=== PATIENT | male | born 1930 | race Caucasian/White ===

== ENCOUNTER 2018-01-07 16:39 | Inpatient (IN) | payer MEDICARE ==
[2018-01-07 17:27] LABS: ABNORMAL IP MESSAGE 1; HEMATOCRIT 37.5 % (42.0-52.0); HEMOGLOBIN 11.5 g/dl (14.0-18.0); MEAN CORPUSCULAR HEMOGLOBIN 26.7 pg (29.0-33.0); MEAN CORPUSCULAR HGB CONC 30.7 g/dl (32.0-37.0); MEAN CORPUSCULAR VOLUME 87.2 fl (82.0-101.0); MEAN PLATELET VOLUME 12.9 fl (7.4-10.4); PLATELET COUNT 234 10^3/UL (140-415); POSITIVE DIFF @See below; RED CELL DISTRIBUTION WIDTH 16.6 % (11.5-14.5)
[2018-01-07 17:27] LABS: WHITE BLOOD COUNT 23.5 10^3/ul (4.8-10.8)
[2018-01-07 17:35] LABS: ADD MAN DIFF? YES
[2018-01-07 17:49] LABS: ALANINE AMINOTRANSFERASE 30 IU/L (13-69); ALBUMIN 3.3 g/dl (3.3-4.9); ALBUMIN/GLOBULIN RATIO 0.67; ALKALINE PHOSPHATASE 430 IU/L (42-121); ANION GAP 14 (5-13); ASPARTATE AMINO TRANSFERASE 61 IU/L (15-46); BILIRUBIN,INDIRECT 0.2 mg/dl (0-1.1); BILIRUBIN,TOTAL 0.2 mg/dl (0.2-1.3); CALCIUM 9.7 mg/dl (8.4-10.2); CARBON DIOXIDE 27 mmol/L (21-31); CHLORIDE 120 mmol/L (97-110); GLUCOSE 110 mg/dl (70-220); LIPASE 34 U/L (23-300); POTASSIUM 4.7 mmol/L (3.5-5.1); TOTAL PROTEIN 8.2 g/dl (6.1-8.1)
[2018-01-07 17:56] LABS: SODIUM 161 mmol/L (135-144)
[2018-01-07 17:58] LABS: BLOOD UREA NITROGEN 132 mg/dl (7-20)
[2018-01-07 18:01] LABS: ADD UMIC YES; UR ASCORBIC ACID 40 mg/dL (NEGATIVE); UR BACTERIA FEW /HPF (NONE SEEN); UR BILIRUBIN (Dip) NEGATIVE (NEGATIVE); UR BLOOD (Dip) 2+ mg/dL (NEGATIVE); UR CLARITY TURBID (CLEAR); UR COLOR YELLOW (YELLOW); UR GLUCOSE (Dip) NEGATIVE (NEGATIVE); UR KETONES (Dip) NEGATIVE (NEGATIVE); UR LEUKOCYTE ESTERASE (Dip) 3+ Leu/ul (NEGATIVE); UR NITRITE (Dip) NEGATIVE (NEGATIVE); UR NONSQUAMOUS EPITHELIAL CELL 1 /HPF (NONE SEEN); UR RBC 86 /HPF (0-5); UR SPECIFIC GRAVITY (Dip) 1.017 (1.003-1.030); UR TOTAL PROTEIN (Dip) 2+ mg/dl (NEGATIVE); UR UROBILINOGEN (Dip) NEGATIVE (NEGATIVE); UR WBC > 182 /HPF (0-5)
[2018-01-07] MEDS: SOD CHLORIDE 0.9% 1,000 ML IV (18:08)
[2018-01-07] MEDS: PIPER-TAZO 3.375 GM IV (PMX) 100 ML IVPB (18:08)
[2018-01-07] MEDS: ERTAPENEM SODIUM 1 GM in SOD CHLORIDE 0.9% 100 ML IVPB (18:42)
[2018-01-07 18:47] LABS: BAND NEUTROPHILS #M 0.4 10^3/ul (0.0-0.6); BAND NEUTROPHILS % (M) 2 % (0-4); BURR CELLS 1+ (0-0); EOSINOPHILS % (M) 1 % (0-7); LYMPHOCYTES #M 1.6 10^3/ul (0.8-2.9); LYMPHOCYTES % (M) 7 % (15-51); MONOCYTE #M 1.1 10^3/ul (0.3-0.9); MONOCYTES % (M) 5 % (0-11); MYELOCYTES #M 0.7 10^3/ul (0.0-0.0); MYELOCYTES % (M) 3 % (0-0); PLATELET ESTIMATE NORMAL; POIKILOCYTOSIS 3+ (0-0); SEG NEUT #M 19.4 10^3/ul (1.6-7.5); SEGMENTED NEUTROPHILS (M) % 82 % (39-77); SMUDGE%M 11 % (0-0); TEAR DROP CELLS 1+ (0-0)
[2018-01-07] MEDS ORDERED: ONDANSETRON 4 MG TAB PO (23:00)
[2018-01-07] MEDS ORDERED: ACETAMINOPHEN 650MG/20.3ML CUP PO (23:00)
[2018-01-07] MEDS: BISACODYL 10 MG SUPP PR (23:00)
[2018-01-07] MEDS ORDERED: MEROPENEM 1 GM/50ML(PMX) 50 ML IVPB (23:00)
[2018-01-08] MEDS: DEXTROSE 5% 1,000 ML IV ×2 (00:50→08:41)
[2018-01-08 06:18] LABS: ABNORMAL IP MESSAGE 1; HEMATOCRIT 31.7 % (42.0-52.0); HEMOGLOBIN 9.6 g/dl (14.0-18.0); MEAN CORPUSCULAR HGB CONC 30.3 g/dl (32.0-37.0); MEAN PLATELET VOLUME 13.5 fl (7.4-10.4); PLATELET COUNT 131 10^3/UL (140-415); POSITIVE DIFF @See below; RED BLOOD COUNT 3.56 10^6/ul (4.70-6.10); RED CELL DISTRIBUTION WIDTH 17.1 % (11.5-14.5)
[2018-01-08 06:18] LABS: WHITE BLOOD COUNT 14.7 10^3/ul (4.8-10.8)
[2018-01-08 06:25] LABS: ADD MAN DIFF? YES
[2018-01-08 06:51] LABS: ANION GAP 10 (5-13); BLOOD UREA NITROGEN 98 mg/dl (7-20); CALCIUM 8.9 mg/dl (8.4-10.2); CARBON DIOXIDE 28 mmol/L (21-31); CHLORIDE 125 mmol/L (97-110); CREATININE 2.77 mg/dl (0.61-1.24); GLUCOSE 130 mg/dl (70-220); POTASSIUM 3.8 mmol/L (3.5-5.1)
[2018-01-08 06:59] LABS: SODIUM 163 mmol/L (135-144)
[2018-01-08 08:33] LABS: BAND NEUTROPHILS #M 0.2 10^3/ul (0.0-0.6); BAND NEUTROPHILS % (M) 2 % (0-4); BASOPHIL #M 0.1 10^3/ul (0.0-0.0); BASOPHILS % (M) 1 % (0-2); EOSINOPHILS % (M) 5 % (0-7); GIANT THROMBO% (M) 3 % (0-0); LYMPHOCYTES #M 1.9 10^3/ul (0.8-2.9); LYMPHOCYTES % (M) 13 % (15-51); METAMYELOCYTES #M 0.1 10^3/ul (0.0-0.0); METAMYELOCYTES %M 1 % (0-0); MICROCYTOSIS 1+ (0-0); MONOCYTE #M 0.8 10^3/ul (0.3-0.9); MONOCYTES % (M) 6 % (0-11); MYELOCYTES #M 0.2 10^3/ul (0.0-0.0); MYELOCYTES % (M) 2 % (0-0); PLATELET ESTIMATE DECREASED; POLYCHROMASIA 1+ (0-0); REACTIVE LYMPHOCYTES #M 0.1 10^3/ul (0.0-0.0); REACTIVE LYMPHOCYTES% (M) 1 % (0-0); SEG NEUT #M 10.2 10^3/ul (1.6-7.5); SEGMENTED NEUTROPHILS (M) % 69 % (39-77); SMUDGE%M 19 % (0-0)
[2018-01-08] MEDS: ASCORBIC ACID 500 MG TAB PO (08:37)
[2018-01-08] MEDS: FAMOTIDINE 20 MG TAB PO (08:38)
[2018-01-08] MEDS: DOCUSATE SODIUM 100 MG CAP PO ×2 (08:38→21:11)
[2018-01-08] MEDS: MULTIVITAMINS/MINERALS TAB PO (08:38)
[2018-01-08] MEDS: LACTOBACILLUS RHAMNOSUS CAP PO ×2 (08:38→21:10)
[2018-01-08] MEDS: ERTAPENEM SODIUM 0.5 GM in SOD CHLORIDE 0.9% 100 ML IVPB (08:40)
[2018-01-08] MEDS: ENOXAPARIN 30 MG/0.3 ML SYG SC (08:42)
[2018-01-08] MEDS ORDERED: ERTAPENEM SODIUM 1 GM VIAL IVPB (09:00)
[2018-01-08] MEDS ORDERED: NON-FORMULARY/PATIENT OWN MED (Protein Supplement (Promod) 30 ML) PO (09:00)
[2018-01-08] MEDS: D5W + KCL 20 MEQ 1,000 ML IV ×2 (12:43→21:12)
[2018-01-08 18:06] LABS: SODIUM,URINE RANDOM < 13 mmol/L (30-90)
[2018-01-08 18:08] LABS: CREATININE,URINE RANDOM 72.12 mg/dl (20-370); PROTEIN/CREAT RATIO 0.73 RATIO
[2018-01-08] MEDS: TAMSULOSIN (SR) 0.4 MG CAP PO (21:11)
[2018-01-09] MEDS: BISACODYL 10 MG SUPP PR ×2 (00:15→20:16)
[2018-01-09 05:49] LABS: ABNORMAL IP MESSAGE 1; HEMATOCRIT 30.1 % (42.0-52.0); HEMOGLOBIN 9.1 g/dl (14.0-18.0); MEAN CORPUSCULAR HEMOGLOBIN 27.2 pg (29.0-33.0); MEAN CORPUSCULAR HGB CONC 30.2 g/dl (32.0-37.0); MEAN CORPUSCULAR VOLUME 90.1 fl (82.0-101.0); MEAN PLATELET VOLUME 12.5 fl (7.4-10.4); PLATELET COUNT 183 10^3/UL (140-415); POSITIVE DIFF @See below; RED BLOOD COUNT 3.34 10^6/ul (4.70-6.10); RED CELL DISTRIBUTION WIDTH 16.4 % (11.5-14.5)
[2018-01-09 05:49] LABS: WHITE BLOOD COUNT 12.6 10^3/ul (4.8-10.8)
[2018-01-09 05:56] LABS: ADD MAN DIFF? YES
[2018-01-09 06:07] LABS: CREATINE KINASE 63 IU/L (23-200)
[2018-01-09 06:08] LABS: BLOOD UREA NITROGEN 56 mg/dl (7-20); CALCIUM 8.4 mg/dl (8.4-10.2); CARBON DIOXIDE 27 mmol/L (21-31); CREATININE 1.29 mg/dl (0.61-1.24); GLUCOSE 115 mg/dl (70-220); POTASSIUM 3.8 mmol/L (3.5-5.1); SODIUM 156 mmol/L (135-144)
[2018-01-09 06:26] LABS: ANION GAP 5 (5-13); CHLORIDE 124 mmol/L (97-110)
[2018-01-09 07:25] LABS: ANISOCYTOSIS 1+ (0-0); BAND NEUTROPHILS #M 0.1 10^3/ul (0.0-0.6); BAND NEUTROPHILS % (M) 1 % (0-4); BASOPHIL #M 0.1 10^3/ul (0.0-0.0); BASOPHILS % (M) 1 % (0-2); BURR CELLS 1+ (0-0); EOSINOPHILS % (M) 3 % (0-7); LYMPHOCYTES #M 2.3 10^3/ul (0.8-2.9); LYMPHOCYTES % (M) 19 % (15-51); MONOCYTE #M 0.6 10^3/ul (0.3-0.9); MONOCYTES % (M) 5 % (0-11); PLATELET ESTIMATE NORMAL; POIKILOCYTOSIS 1+ (0-0); POLYCHROMASIA 2+ (0-0); REACTIVE LYMPHOCYTES #M 0.1 10^3/ul (0.0-0.0); REACTIVE LYMPHOCYTES% (M) 1 % (0-0); SEG NEUT #M 8.8 10^3/ul (1.6-7.5); SEGMENTED NEUTROPHILS (M) % 70 % (39-77); SMUDGE%M 19 % (0-0)
[2018-01-09] MEDS: MULTIVITAMINS/MINERALS TAB PO (08:13)
[2018-01-09] MEDS: COLLAGENASE 5 GM (UD JAR) TOP (08:13)
[2018-01-09] MEDS: FAMOTIDINE 20 MG TAB PO (08:13)
[2018-01-09] MEDS: LACTOBACILLUS RHAMNOSUS CAP PO ×2 (08:13→20:15)
[2018-01-09] MEDS: DOCUSATE SODIUM 100 MG CAP PO ×2 (08:13→20:16)
[2018-01-09] MEDS: ASCORBIC ACID 500 MG TAB PO (08:13)
[2018-01-09] MEDS: D5W + KCL 20 MEQ 1,000 ML IV ×3 (08:14→23:01)
[2018-01-09] MEDS: BALSAM PERU/CASTOR OIL 60 GM TUBE TOP (08:14)
[2018-01-09] MEDS: ENOXAPARIN 30 MG/0.3 ML SYG SC (08:17)
[2018-01-09] MEDS: ERTAPENEM SODIUM 0.5 GM in SOD CHLORIDE 0.9% 100 ML IVPB (11:05)
[2018-01-09] MEDS: TAMSULOSIN (SR) 0.4 MG CAP PO (20:15)
[2018-01-10 05:25] LABS: ADD MAN DIFF? NO
[2018-01-10 05:31] LABS: WHITE BLOOD COUNT 15.8 10^3/ul (4.8-10.8)
[2018-01-10 05:31] LABS: BASOPHILS % 0.2 % (0.0-2.0); EOSINOPHILS # 0.6 10^3/ul (0.0-0.5); EOSINOPHILS % 3.7 % (0.0-7.0); HEMATOCRIT 29.1 % (42.0-52.0); HEMOGLOBIN 8.7 g/dl (14.0-18.0); LYMPHOCYTES # 2.7 10^3/ul (0.8-2.9); LYMPHOCYTES % 17.1 % (15.0-51.0); MEAN CORPUSCULAR HEMOGLOBIN 27.2 pg (29.0-33.0); MEAN CORPUSCULAR HGB CONC 29.9 g/dl (32.0-37.0); MEAN CORPUSCULAR VOLUME 90.9 fl (82.0-101.0); MEAN PLATELET VOLUME 12.4 fl (7.4-10.4); MONOCYTE # 0.7 10^3/ul (0.3-0.9); MONOCYTES % 4.5 % (0.0-11.0); NEUTROPHIL # 11.2 10^3/ul (1.6-7.5); NEUTROPHILS % 71.1 % (39.0-77.0); PLATELET COUNT 183 10^3/UL (140-415); RED CELL DISTRIBUTION WIDTH 16.4 % (11.5-14.5)
[2018-01-10 06:06] LABS: C-REACTIVE PROTEIN 3.7 mg/dl (0.0-0.9)
[2018-01-10 06:13] LABS: ANION GAP 9 (5-13); BLOOD UREA NITROGEN 37 mg/dl (7-20); CALCIUM 8.3 mg/dl (8.4-10.2); CARBON DIOXIDE 28 mmol/L (21-31); CHLORIDE 122 mmol/L (97-110); CREATININE 1.01 mg/dl (0.61-1.24); GLUCOSE 102 mg/dl (70-220); POTASSIUM 4.3 mmol/L (3.5-5.1); SODIUM 159 mmol/L (135-144)
[2018-01-10 06:55] LABS: PROSTATE SPECIFIC ANTIGEN 15.4 ng/ml (0.0-4.0)
[2018-01-10 08:46] LABS: ERYTHROCYTE SEDIMENTATION RATE 73 mm/Hr (0-20)
[2018-01-10] MEDS: ERTAPENEM SODIUM 0.5 GM in SOD CHLORIDE 0.9% 100 ML IVPB (09:55)
[2018-01-10] MEDS: LACTOBACILLUS RHAMNOSUS CAP PO ×2 (09:55→20:55)
[2018-01-10] MEDS: MULTIVITAMINS/MINERALS TAB PO (09:55)
[2018-01-10] MEDS: ASCORBIC ACID 500 MG TAB PO (09:55)
[2018-01-10] MEDS: DOCUSATE SODIUM 100 MG CAP PO ×2 (09:55→20:55)
[2018-01-10] MEDS: COLLAGENASE 5 GM (UD JAR) TOP (09:57)
[2018-01-10] MEDS: FAMOTIDINE 20 MG TAB PO (09:57)
[2018-01-10] MEDS: ENOXAPARIN 30 MG/0.3 ML SYG SC (09:57)
[2018-01-10] MEDS: BALSAM PERU/CASTOR OIL 60 GM TUBE TOP (09:58)
[2018-01-10] MEDS: D5W + KCL 20 MEQ 1,000 ML IV (19:23)
[2018-01-10] MEDS: TAMSULOSIN (SR) 0.4 MG CAP PO (20:55)
[2018-01-10] MEDS: BISACODYL 10 MG SUPP PR (23:03)
[2018-01-11 06:17] LABS: ADD MAN DIFF? NO
[2018-01-11 06:31] LABS: BASOPHILS % 0.2 % (0.0-2.0); EOSINOPHILS # 0.4 10^3/ul (0.0-0.5); EOSINOPHILS % 2.9 % (0.0-7.0); HEMATOCRIT 29.3 % (42.0-52.0); HEMOGLOBIN 8.7 g/dl (14.0-18.0); LYMPHOCYTES # 2.3 10^3/ul (0.8-2.9); LYMPHOCYTES % 15.2 % (15.0-51.0); MEAN CORPUSCULAR HEMOGLOBIN 27.3 pg (29.0-33.0); MEAN CORPUSCULAR HGB CONC 29.7 g/dl (32.0-37.0); MEAN CORPUSCULAR VOLUME 91.8 fl (82.0-101.0); MEAN PLATELET VOLUME 12.4 fl (7.4-10.4); MONOCYTE # 0.6 10^3/ul (0.3-0.9); MONOCYTES % 4.2 % (0.0-11.0); NEUTROPHIL # 11.1 10^3/ul (1.6-7.5); NEUTROPHILS % 73.8 % (39.0-77.0); PLATELET COUNT 136 10^3/UL (140-415); RED BLOOD COUNT 3.19 10^6/ul (4.70-6.10); RED CELL DISTRIBUTION WIDTH 15.9 % (11.5-14.5)
[2018-01-11 07:09] LABS: ANION GAP 3 (5-13); BLOOD UREA NITROGEN 30 mg/dl (7-20); CALCIUM 8.6 mg/dl (8.4-10.2); CARBON DIOXIDE 30 mmol/L (21-31); CHLORIDE 116 mmol/L (97-110); CREATININE 1.08 mg/dl (0.61-1.24); GLUCOSE 102 mg/dl (70-220); SODIUM 149 mmol/L (135-144)
[2018-01-11] MEDS: DOCUSATE SODIUM 100 MG CAP PO ×2 (08:30→20:05)
[2018-01-11] MEDS: MULTIVITAMINS/MINERALS TAB PO (08:30)
[2018-01-11] MEDS: FAMOTIDINE 20 MG TAB PO (08:30)
[2018-01-11] MEDS: D5W + KCL 20 MEQ 1,000 ML IV ×2 (08:30→18:47)
[2018-01-11] MEDS: ASCORBIC ACID 500 MG TAB PO (08:30)
[2018-01-11] MEDS: LACTOBACILLUS RHAMNOSUS CAP PO ×2 (08:30→20:05)
[2018-01-11] MEDS: ENOXAPARIN 30 MG/0.3 ML SYG SC (08:34)
[2018-01-11] MEDS: COLLAGENASE 5 GM (UD JAR) TOP (08:37)
[2018-01-11] MEDS: BALSAM PERU/CASTOR OIL 60 GM TUBE TOP (08:38)
[2018-01-11] MEDS: ERTAPENEM SODIUM 0.5 GM in SOD CHLORIDE 0.9% 100 ML IVPB (08:40)
[2018-01-11] MEDS: BISACODYL 10 MG SUPP PR (20:05)
[2018-01-11] MEDS: TAMSULOSIN (SR) 0.4 MG CAP PO (20:05)
[2018-01-12 02:20] LABS: ADD UMIC YES; UR ASCORBIC ACID 20 mg/dL (NEGATIVE); UR BACTERIA FEW /HPF (NONE SEEN); UR BILIRUBIN (Dip) NEGATIVE (NEGATIVE); UR BLOOD (Dip) NEGATIVE (NEGATIVE); UR BUDDING YEAST FEW /HPF (NONE SEEN); UR CLARITY SLIGHTLY CLOUDY (CLEAR); UR COLOR YELLOW (YELLOW); UR GLUCOSE (Dip) NEGATIVE (NEGATIVE); UR KETONES (Dip) NEGATIVE (NEGATIVE); UR LEUKOCYTE ESTERASE (Dip) 2+ Leu/ul (NEGATIVE); UR MUCUS FEW /HPF (NONE SEEN); UR NITRITE (Dip) NEGATIVE (NEGATIVE); UR RBC 4 /HPF (0-5); UR SPECIFIC GRAVITY (Dip) 1.009 (1.003-1.030); UR TOTAL PROTEIN (Dip) NEGATIVE (NEGATIVE); UR UROBILINOGEN (Dip) NEGATIVE (NEGATIVE); UR WBC 9 /HPF (0-5)
[2018-01-12 06:02] LABS: ADD MAN DIFF? NO
[2018-01-12 06:10] LABS: WHITE BLOOD COUNT 17.8 10^3/ul (4.8-10.8)
[2018-01-12 06:10] LABS: BASOPHIL # 0.1 10^3/ul (0.0-0.1); BASOPHILS % 0.3 % (0.0-2.0); EOSINOPHILS # 0.4 10^3/ul (0.0-0.5); EOSINOPHILS % 2.3 % (0.0-7.0); HEMATOCRIT 28.4 % (42.0-52.0); HEMOGLOBIN 8.7 g/dl (14.0-18.0); LYMPHOCYTES # 2.7 10^3/ul (0.8-2.9); MEAN CORPUSCULAR HEMOGLOBIN 27.2 pg (29.0-33.0); MEAN CORPUSCULAR HGB CONC 30.6 g/dl (32.0-37.0); MEAN CORPUSCULAR VOLUME 88.8 fl (82.0-101.0); MEAN PLATELET VOLUME 12.5 fl (7.4-10.4); MONOCYTE # 0.7 10^3/ul (0.3-0.9); MONOCYTES % 3.9 % (0.0-11.0); NEUTROPHIL # 13.4 10^3/ul (1.6-7.5); NEUTROPHILS % 75.2 % (39.0-77.0); PLATELET COUNT 205 10^3/UL (140-415); RED CELL DISTRIBUTION WIDTH 15.2 % (11.5-14.5)
[2018-01-12] MEDS: D5W + KCL 20 MEQ 1,000 ML IV (06:31)
[2018-01-12 06:59] LABS: ANION GAP 6 (5-13); BLOOD UREA NITROGEN 19 mg/dl (7-20); CALCIUM 8.4 mg/dl (8.4-10.2); CARBON DIOXIDE 27 mmol/L (21-31); CHLORIDE 112 mmol/L (97-110); CREATININE 0.88 mg/dl (0.61-1.24); GLUCOSE 94 mg/dl (70-220); POTASSIUM 4.4 mmol/L (3.5-5.1); SODIUM 145 mmol/L (135-144)
[2018-01-12] MEDS: MULTIVITAMINS/MINERALS TAB PO (08:44)
[2018-01-12] MEDS: LACTOBACILLUS RHAMNOSUS CAP PO ×2 (08:44→20:07)
[2018-01-12] MEDS: FAMOTIDINE 20 MG TAB PO (08:44)
[2018-01-12] MEDS: ASCORBIC ACID 500 MG TAB PO (08:44)
[2018-01-12] MEDS: DOCUSATE SODIUM 100 MG CAP PO ×2 (08:44→20:07)
[2018-01-12] MEDS: COLLAGENASE 5 GM (UD JAR) TOP (08:46)
[2018-01-12] MEDS: ENOXAPARIN 30 MG/0.3 ML SYG SC (08:46)
[2018-01-12] MEDS: ERTAPENEM SODIUM 0.5 GM in SOD CHLORIDE 0.9% 100 ML IVPB (08:46)
[2018-01-12] MEDS: BALSAM PERU/CASTOR OIL 60 GM TUBE TOP (08:46)
[2018-01-12] MEDS: BISACODYL 10 MG SUPP PR (20:08)
[2018-01-12] MEDS: TAMSULOSIN (SR) 0.4 MG CAP PO (20:08)
[2018-01-13] MEDS: D5W + KCL 20 MEQ 1,000 ML IV ×2 (03:32→23:02)
[2018-01-13 05:59] LABS: WHITE BLOOD COUNT 16.2 10^3/ul (4.8-10.8)
[2018-01-13 05:59] LABS: HEMATOCRIT 30.6 % (42.0-52.0); HEMOGLOBIN 9.4 g/dl (14.0-18.0); MEAN CORPUSCULAR HEMOGLOBIN 27.5 pg (29.0-33.0); MEAN CORPUSCULAR HGB CONC 30.7 g/dl (32.0-37.0); MEAN CORPUSCULAR VOLUME 89.5 fl (82.0-101.0); MEAN PLATELET VOLUME 13.1 fl (7.4-10.4); POSITIVE DIFF @See below; RED BLOOD COUNT 3.42 10^6/ul (4.70-6.10); RED CELL DISTRIBUTION WIDTH 15.1 % (11.5-14.5)
[2018-01-13 06:08] LABS: ANION GAP 9 (5-13); BLOOD UREA NITROGEN 17 mg/dl (7-20); CALCIUM 8.5 mg/dl (8.4-10.2); CARBON DIOXIDE 26 mmol/L (21-31); CHLORIDE 109 mmol/L (97-110); CREATININE 0.81 mg/dl (0.61-1.24); GLUCOSE 101 mg/dl (70-220); POTASSIUM 4.3 mmol/L (3.5-5.1); SODIUM 144 mmol/L (135-144)
[2018-01-13 06:19] LABS: ADD MAN DIFF? YES; PLATELET COUNT 111 10^3/UL (140-415)
[2018-01-13 07:30] LABS: ANISOCYTOSIS 1+ (0-0); EOSINOPHILS % (M) 1 % (0-7); GIANT THROMBO% (M) 1 % (0-0); LYMPHOCYTES #M 2.2 10^3/ul (0.8-2.9); LYMPHOCYTES % (M) 14 % (15-51); MICROCYTOSIS 1+ (0-0); MONOCYTE #M 0.4 10^3/ul (0.3-0.9); MONOCYTES % (M) 3 % (0-11); MYELOCYTES #M 0.1 10^3/ul (0.0-0.0); MYELOCYTES % (M) 1 % (0-0); PLATELET ESTIMATE DECREASED; PLATELET MORPHOLOGY COMMENT @See below; REACTIVE LYMPHOCYTES #M 0.3 10^3/ul (0.0-0.0); REACTIVE LYMPHOCYTES% (M) 2 % (0-0); SEGMENTED NEUTROPHILS (M) % 79 % (39-77); SMUDGE%M 13 % (0-0)
[2018-01-13] MEDS: COLLAGENASE 5 GM (UD JAR) TOP (08:54)
[2018-01-13] MEDS: FAMOTIDINE 20 MG TAB PO (08:54)
[2018-01-13] MEDS: LACTOBACILLUS RHAMNOSUS CAP PO ×2 (08:54→20:49)
[2018-01-13] MEDS: MULTIVITAMINS/MINERALS TAB PO (08:54)
[2018-01-13] MEDS: DOCUSATE SODIUM 100 MG CAP PO ×2 (08:54→20:49)
[2018-01-13] MEDS: ASCORBIC ACID 500 MG TAB PO (08:54)
[2018-01-13] MEDS: BALSAM PERU/CASTOR OIL 60 GM TUBE TOP (08:55)
[2018-01-13] MEDS: ENOXAPARIN 30 MG/0.3 ML SYG SC (09:05)
[2018-01-13] MEDS: ERTAPENEM SODIUM 0.5 GM in SOD CHLORIDE 0.9% 100 ML IVPB (09:06)
[2018-01-13] MEDS: FLUCONAZOLE 100 MG/50 ML (PMX) 50 ML IVPB (16:44)
[2018-01-13] MEDS: TAMSULOSIN (SR) 0.4 MG CAP PO (20:49)
[2018-01-13] MEDS: BISACODYL 10 MG SUPP PR (23:00)
[2018-01-14 05:15] LABS: ADD MAN DIFF? NO
[2018-01-14 05:16] LABS: WHITE BLOOD COUNT 12.3 10^3/ul (4.8-10.8)
[2018-01-14 05:16] LABS: BASOPHIL # 0.1 10^3/ul (0.0-0.1); BASOPHILS % 0.5 % (0.0-2.0); EOSINOPHILS # 0.4 10^3/ul (0.0-0.5); EOSINOPHILS % 3.4 % (0.0-7.0); HEMATOCRIT 27.6 % (42.0-52.0); HEMOGLOBIN 8.6 g/dl (14.0-18.0); LYMPHOCYTES # 2.3 10^3/ul (0.8-2.9); LYMPHOCYTES % 18.3 % (15.0-51.0); MEAN CORPUSCULAR HEMOGLOBIN 27.2 pg (29.0-33.0); MEAN CORPUSCULAR HGB CONC 31.2 g/dl (32.0-37.0); MEAN CORPUSCULAR VOLUME 87.3 fl (82.0-101.0); MEAN PLATELET VOLUME 12.4 fl (7.4-10.4); MONOCYTE # 0.6 10^3/ul (0.3-0.9); MONOCYTES % 5.2 % (0.0-11.0); NEUTROPHIL # 8.6 10^3/ul (1.6-7.5); NEUTROPHILS % 70.2 % (39.0-77.0); PLATELET COUNT 259 10^3/UL (140-415); RED BLOOD COUNT 3.16 10^6/ul (4.70-6.10); RED CELL DISTRIBUTION WIDTH 15.2 % (11.5-14.5)
[2018-01-14 05:43] LABS: ANION GAP 6 (5-13); BLOOD UREA NITROGEN 15 mg/dl (7-20); CALCIUM 8.5 mg/dl (8.4-10.2); CARBON DIOXIDE 28 mmol/L (21-31); CHLORIDE 108 mmol/L (97-110); CREATININE 0.78 mg/dl (0.61-1.24); GLUCOSE 96 mg/dl (70-220); POTASSIUM 4.6 mmol/L (3.5-5.1); SODIUM 142 mmol/L (135-144)
[2018-01-14] MEDS: LACTOBACILLUS RHAMNOSUS CAP PO ×2 (08:45→20:25)
[2018-01-14] MEDS: ASCORBIC ACID 500 MG TAB PO (08:45)
[2018-01-14] MEDS: MULTIVITAMINS/MINERALS TAB PO (08:45)
[2018-01-14] MEDS: FAMOTIDINE 20 MG TAB PO (08:45)
[2018-01-14] MEDS: ERTAPENEM SODIUM 0.5 GM in SOD CHLORIDE 0.9% 100 ML IVPB (08:45)
[2018-01-14] MEDS: DOCUSATE SODIUM 100 MG CAP PO ×2 (08:45→20:25)
[2018-01-14] MEDS: COLLAGENASE 5 GM (UD JAR) TOP (09:04)
[2018-01-14] MEDS: ENOXAPARIN 30 MG/0.3 ML SYG SC (09:04)
[2018-01-14] MEDS: BALSAM PERU/CASTOR OIL 60 GM TUBE TOP (09:04)
[2018-01-14] MEDS: FLUCONAZOLE 100 MG/50 ML (PMX) 50 ML IVPB (17:07)
[2018-01-14] MEDS: TAMSULOSIN (SR) 0.4 MG CAP PO (20:25)
[2018-01-14] MEDS: D5W + KCL 20 MEQ 1,000 ML IV (20:25)
[2018-01-14] MEDS: BISACODYL 10 MG SUPP PR (23:00)
[2018-01-15] MEDS: ERTAPENEM SODIUM 0.5 GM in SOD CHLORIDE 0.9% 100 ML IVPB (08:58)
[2018-01-15] MEDS: COLLAGENASE 5 GM (UD JAR) TOP (08:58)
[2018-01-15] MEDS: LACTOBACILLUS RHAMNOSUS CAP PO ×2 (08:59→20:10)
[2018-01-15] MEDS: FAMOTIDINE 20 MG TAB PO (08:59)
[2018-01-15] MEDS: ASCORBIC ACID 500 MG TAB PO (08:59)
[2018-01-15] MEDS: MULTIVITAMINS/MINERALS TAB PO (08:59)
[2018-01-15] MEDS: DOCUSATE SODIUM 100 MG CAP PO ×2 (08:59→20:10)
[2018-01-15] MEDS: BALSAM PERU/CASTOR OIL 60 GM TUBE TOP (09:00)
[2018-01-15] MEDS: ENOXAPARIN 30 MG/0.3 ML SYG SC (09:08)
[2018-01-15 10:07] LABS: ADD MAN DIFF? NO
[2018-01-15 10:13] LABS: WHITE BLOOD COUNT 10.3 10^3/ul (4.8-10.8)
[2018-01-15 10:13] LABS: BASOPHIL # 0.1 10^3/ul (0.0-0.1); BASOPHILS % 0.5 % (0.0-2.0); EOSINOPHILS # 0.3 10^3/ul (0.0-0.5); EOSINOPHILS % 2.7 % (0.0-7.0); HEMATOCRIT 28.6 % (42.0-52.0); HEMOGLOBIN 8.7 g/dl (14.0-18.0); LYMPHOCYTES # 1.9 10^3/ul (0.8-2.9); LYMPHOCYTES % 17.9 % (15.0-51.0); MEAN CORPUSCULAR HEMOGLOBIN 27.2 pg (29.0-33.0); MEAN CORPUSCULAR HGB CONC 30.4 g/dl (32.0-37.0); MEAN CORPUSCULAR VOLUME 89.4 fl (82.0-101.0); MEAN PLATELET VOLUME 12.5 fl (7.4-10.4); MONOCYTE # 0.7 10^3/ul (0.3-0.9); MONOCYTES % 7.2 % (0.0-11.0); NEUTROPHIL # 7.2 10^3/ul (1.6-7.5); NEUTROPHILS % 70.1 % (39.0-77.0); PLATELET COUNT 242 10^3/UL (140-415); RED CELL DISTRIBUTION WIDTH 15.5 % (11.5-14.5)
[2018-01-15 10:33] LABS: ANION GAP 8 (5-13); BLOOD UREA NITROGEN 15 mg/dl (7-20); CALCIUM 8.8 mg/dl (8.4-10.2); CARBON DIOXIDE 30 mmol/L (21-31); CHLORIDE 107 mmol/L (97-110); CREATININE 0.84 mg/dl (0.61-1.24); GLUCOSE 99 mg/dl (70-220); POTASSIUM 4.6 mmol/L (3.5-5.1); SODIUM 145 mmol/L (135-144)
[2018-01-15] MEDS: D5W + KCL 20 MEQ 1,000 ML IV (16:17)
[2018-01-15] MEDS: FLUCONAZOLE 100 MG/50 ML (PMX) 50 ML IVPB (17:49)
[2018-01-15] MEDS: TAMSULOSIN (SR) 0.4 MG CAP PO (20:10)
[2018-01-15] MEDS: BISACODYL 10 MG SUPP PR (23:00)
[2018-01-16 06:15] LABS: ADD MAN DIFF? NO
[2018-01-16 06:23] LABS: BASOPHIL # 0.1 10^3/ul (0.0-0.1); BASOPHILS % 0.6 % (0.0-2.0); EOSINOPHILS # 0.3 10^3/ul (0.0-0.5); EOSINOPHILS % 3.5 % (0.0-7.0); HEMATOCRIT 29.5 % (42.0-52.0); HEMOGLOBIN 9.1 g/dl (14.0-18.0); LYMPHOCYTES # 2.2 10^3/ul (0.8-2.9); LYMPHOCYTES % 23.5 % (15.0-51.0); MEAN CORPUSCULAR HEMOGLOBIN 27.6 pg (29.0-33.0); MEAN CORPUSCULAR HGB CONC 30.8 g/dl (32.0-37.0); MEAN CORPUSCULAR VOLUME 89.4 fl (82.0-101.0); MEAN PLATELET VOLUME 12.3 fl (7.4-10.4); MONOCYTE # 0.7 10^3/ul (0.3-0.9); MONOCYTES % 7.9 % (0.0-11.0); NEUTROPHIL # 5.9 10^3/ul (1.6-7.5); NEUTROPHILS % 63.4 % (39.0-77.0); PLATELET COUNT 253 10^3/UL (140-415); RED CELL DISTRIBUTION WIDTH 15.6 % (11.5-14.5)
[2018-01-16 06:23] LABS: WHITE BLOOD COUNT 9.4 10^3/ul (4.8-10.8)
[2018-01-16 07:06] LABS: ANION GAP 6 (5-13); BLOOD UREA NITROGEN 17 mg/dl (7-20); CALCIUM 8.7 mg/dl (8.4-10.2); CARBON DIOXIDE 27 mmol/L (21-31); CHLORIDE 105 mmol/L (97-110); CREATININE 0.67 mg/dl (0.61-1.24); GLUCOSE 92 mg/dl (70-220); POTASSIUM 4.4 mmol/L (3.5-5.1); SODIUM 138 mmol/L (135-144)
[2018-01-16] MEDS: FAMOTIDINE 20 MG TAB PO (09:26)
[2018-01-16] MEDS: MULTIVITAMINS/MINERALS TAB PO (09:26)
[2018-01-16] MEDS: LACTOBACILLUS RHAMNOSUS CAP PO ×2 (09:26→21:40)
[2018-01-16] MEDS: ASCORBIC ACID 500 MG TAB PO (09:27)
[2018-01-16] MEDS: DOCUSATE SODIUM 100 MG CAP PO ×2 (09:27→21:40)
[2018-01-16] MEDS: BALSAM PERU/CASTOR OIL 60 GM TUBE TOP (09:27)
[2018-01-16] MEDS: COLLAGENASE 5 GM (UD JAR) TOP (09:27)
[2018-01-16] MEDS: ENOXAPARIN 30 MG/0.3 ML SYG SC (09:31)
[2018-01-16] MEDS: D5W + KCL 20 MEQ 1,000 ML IV ×2 (11:32→14:45)
[2018-01-16] MEDS: FLUCONAZOLE 100 MG/50 ML (PMX) 50 ML IVPB (17:58)
[2018-01-16] MEDS: TAMSULOSIN (SR) 0.4 MG CAP PO (21:40)
[2018-01-16] MEDS: BISACODYL 10 MG SUPP PR (23:00)
[2018-01-17] MEDS: D5W + KCL 20 MEQ 1,000 ML IV ×2 (07:30→13:04)
[2018-01-17] MEDS: MULTIVITAMINS/MINERALS TAB PO (08:02)
[2018-01-17] MEDS: FAMOTIDINE 20 MG TAB PO (08:02)
[2018-01-17] MEDS: BALSAM PERU/CASTOR OIL 60 GM TUBE TOP (08:02)
[2018-01-17] MEDS: LACTOBACILLUS RHAMNOSUS CAP PO ×2 (08:02→22:13)
[2018-01-17] MEDS: COLLAGENASE 5 GM (UD JAR) TOP (08:02)
[2018-01-17] MEDS: DOCUSATE SODIUM 100 MG CAP PO ×2 (08:04→22:13)
[2018-01-17] MEDS: ASCORBIC ACID 500 MG TAB PO (08:04)
[2018-01-17] MEDS: ENOXAPARIN 30 MG/0.3 ML SYG SC (09:28)
[2018-01-17] MEDS: FLUCONAZOLE 100 MG/50 ML (PMX) 50 ML IVPB (17:25)
[2018-01-17] MEDS: TAMSULOSIN (SR) 0.4 MG CAP PO (22:13)
[2018-01-17] MEDS: BISACODYL 10 MG SUPP PR (22:16)
[2018-01-18] MEDS: D5W + KCL 20 MEQ 1,000 ML IV (05:15)
[2018-01-18 06:00] LABS: ADD MAN DIFF? NO
[2018-01-18 06:04] LABS: BASOPHIL # 0.1 10^3/ul (0.0-0.1); BASOPHILS % 0.8 % (0.0-2.0); EOSINOPHILS # 0.3 10^3/ul (0.0-0.5); EOSINOPHILS % 3.4 % (0.0-7.0); HEMATOCRIT 28.4 % (42.0-52.0); HEMOGLOBIN 8.9 g/dl (14.0-18.0); LYMPHOCYTES # 2.3 10^3/ul (0.8-2.9); LYMPHOCYTES % 25.7 % (15.0-51.0); MEAN CORPUSCULAR HEMOGLOBIN 27.6 pg (29.0-33.0); MEAN CORPUSCULAR HGB CONC 31.3 g/dl (32.0-37.0); MEAN CORPUSCULAR VOLUME 88.2 fl (82.0-101.0); MONOCYTE # 0.8 10^3/ul (0.3-0.9); MONOCYTES % 9.2 % (0.0-11.0); NEUTROPHIL # 5.5 10^3/ul (1.6-7.5); NEUTROPHILS % 60.2 % (39.0-77.0); PLATELET COUNT 329 10^3/UL (140-415); RED BLOOD COUNT 3.22 10^6/ul (4.70-6.10)
[2018-01-18 06:04] LABS: WHITE BLOOD COUNT 9.1 10^3/ul (4.8-10.8)
[2018-01-18 06:52] LABS: ANION GAP 8 (5-13); BLOOD UREA NITROGEN 19 mg/dl (7-20); CALCIUM 9.1 mg/dl (8.4-10.2); CARBON DIOXIDE 28 mmol/L (21-31); CHLORIDE 103 mmol/L (97-110); CREATININE 0.77 mg/dl (0.61-1.24); GLUCOSE 108 mg/dl (70-220); POTASSIUM 4.4 mmol/L (3.5-5.1); SODIUM 139 mmol/L (135-144)
[2018-01-18] MEDS: DOCUSATE SODIUM 100 MG CAP PO ×2 (07:56→21:02)
[2018-01-18] MEDS: FAMOTIDINE 20 MG TAB PO (07:56)
[2018-01-18] MEDS: LACTOBACILLUS RHAMNOSUS CAP PO ×2 (07:56→21:02)
[2018-01-18] MEDS: MULTIVITAMINS/MINERALS TAB PO (07:56)
[2018-01-18] MEDS: ASCORBIC ACID 500 MG TAB PO (07:56)
[2018-01-18] MEDS: BALSAM PERU/CASTOR OIL 60 GM TUBE TOP (07:56)
[2018-01-18] MEDS: COLLAGENASE 5 GM (UD JAR) TOP (07:57)
[2018-01-18] MEDS: ENOXAPARIN 30 MG/0.3 ML SYG SC (08:04)
[2018-01-18] MEDS: FLUCONAZOLE 100 MG/50 ML (PMX) 50 ML IVPB (16:32)
[2018-01-18] MEDS: TAMSULOSIN (SR) 0.4 MG CAP PO (21:02)
[2018-01-18] MEDS: BISACODYL 10 MG SUPP PR (23:04)
[2018-01-19] MEDS: D5W + KCL 20 MEQ 1,000 ML IV (00:59)
[2018-01-19 06:05] LABS: ANION GAP 5 (5-13); BLOOD UREA NITROGEN 12 mg/dl (7-20); CALCIUM 9.1 mg/dl (8.4-10.2); CARBON DIOXIDE 31 mmol/L (21-31); CHLORIDE 107 mmol/L (97-110); CREATININE 0.76 mg/dl (0.61-1.24); GLUCOSE 101 mg/dl (70-220); POTASSIUM 4.3 mmol/L (3.5-5.1); SODIUM 143 mmol/L (135-144)
[2018-01-19] MEDS: ENOXAPARIN 30 MG/0.3 ML SYG SC (07:49)
[2018-01-19] MEDS: DOCUSATE SODIUM 100 MG CAP PO ×2 (07:49→22:02)
[2018-01-19] MEDS: LACTOBACILLUS RHAMNOSUS CAP PO ×2 (08:44→22:02)
[2018-01-19] MEDS: FAMOTIDINE 20 MG TAB PO (08:44)
[2018-01-19] MEDS: MULTIVITAMINS/MINERALS TAB PO (08:44)
[2018-01-19] MEDS: ASCORBIC ACID 500 MG TAB PO (08:44)
[2018-01-19] MEDS: COLLAGENASE 5 GM (UD JAR) TOP (08:45)
[2018-01-19] MEDS: BALSAM PERU/CASTOR OIL 60 GM TUBE TOP (08:45)
[2018-01-19] MEDS: FLUCONAZOLE 100 MG/50 ML (PMX) 50 ML IVPB (16:25)
[2018-01-19] MEDS: TAMSULOSIN (SR) 0.4 MG CAP PO (22:02)
[2018-01-20] MEDS: BISACODYL 10 MG SUPP PR ×2 (00:08→22:00)
[2018-01-20 06:00] LABS: ADD MAN DIFF? NO
[2018-01-20 06:15] LABS: WHITE BLOOD COUNT 7.7 10^3/ul (4.8-10.8)
[2018-01-20 06:15] LABS: BASOPHIL # 0.1 10^3/ul (0.0-0.1); BASOPHILS % 0.8 % (0.0-2.0); EOSINOPHILS # 0.3 10^3/ul (0.0-0.5); LYMPHOCYTES % 26.2 % (15.0-51.0); MEAN CORPUSCULAR HEMOGLOBIN 27.8 pg (29.0-33.0); MEAN CORPUSCULAR VOLUME 89.5 fl (82.0-101.0); MONOCYTE # 0.6 10^3/ul (0.3-0.9); MONOCYTES % 7.9 % (0.0-11.0); NEUTROPHIL # 4.7 10^3/ul (1.6-7.5); NEUTROPHILS % 60.6 % (39.0-77.0); PLATELET COUNT 309 10^3/UL (140-415); RED BLOOD COUNT 3.24 10^6/ul (4.70-6.10); RED CELL DISTRIBUTION WIDTH 16.2 % (11.5-14.5)
[2018-01-20 06:32] LABS: ALANINE AMINOTRANSFERASE 40 IU/L (13-69); ALBUMIN/GLOBULIN RATIO 0.76; ALKALINE PHOSPHATASE 195 IU/L (42-121); ANION GAP 5 (5-13); ASPARTATE AMINO TRANSFERASE 35 IU/L (15-46); BILIRUBIN,INDIRECT 0.3 mg/dl (0-1.1); BILIRUBIN,TOTAL 0.3 mg/dl (0.2-1.3); BLOOD UREA NITROGEN 17 mg/dl (7-20); CALCIUM 8.9 mg/dl (8.4-10.2); CARBON DIOXIDE 32 mmol/L (21-31); CHLORIDE 104 mmol/L (97-110); CREATININE 0.81 mg/dl (0.61-1.24); GLUCOSE 86 mg/dl (70-220); POTASSIUM 4.7 mmol/L (3.5-5.1); SODIUM 141 mmol/L (135-144); TOTAL PROTEIN 6.9 g/dl (6.1-8.1)
[2018-01-20] MEDS: ASCORBIC ACID 500 MG TAB PO (08:33)
[2018-01-20] MEDS: LACTOBACILLUS RHAMNOSUS CAP PO ×2 (08:33→21:58)
[2018-01-20] MEDS: ENOXAPARIN 30 MG/0.3 ML SYG SC (08:33)
[2018-01-20] MEDS: DOCUSATE SODIUM 100 MG CAP PO ×2 (08:33→21:58)
[2018-01-20] MEDS: FAMOTIDINE 20 MG TAB PO (08:33)
[2018-01-20] MEDS: MULTIVITAMINS/MINERALS TAB PO (08:33)
[2018-01-20] MEDS: COLLAGENASE 5 GM (UD JAR) TOP (08:35)
[2018-01-20] MEDS: BALSAM PERU/CASTOR OIL 60 GM TUBE TOP (08:35)
[2018-01-20] MEDS: FLUCONAZOLE 100 MG TAB PO (17:13)
[2018-01-20] MEDS: TAMSULOSIN (SR) 0.4 MG CAP PO (21:59)
[2018-01-21] MEDS: ASCORBIC ACID 500 MG TAB PO (09:06)
[2018-01-21] MEDS: LACTOBACILLUS RHAMNOSUS CAP PO ×2 (09:06→20:13)
[2018-01-21] MEDS: DOCUSATE SODIUM 100 MG CAP PO ×2 (09:07→20:13)
[2018-01-21] MEDS: FLUCONAZOLE 100 MG TAB PO (09:07)
[2018-01-21] MEDS: MULTIVITAMINS/MINERALS TAB PO (09:07)
[2018-01-21] MEDS: FAMOTIDINE 20 MG TAB PO (09:07)
[2018-01-21] MEDS: BALSAM PERU/CASTOR OIL 60 GM TUBE TOP (09:08)
[2018-01-21] MEDS: COLLAGENASE 5 GM (UD JAR) TOP (09:08)
[2018-01-21] MEDS: ENOXAPARIN 30 MG/0.3 ML SYG SC (09:10)
[2018-01-21] MEDS: TAMSULOSIN (SR) 0.4 MG CAP PO (20:13)
[2018-01-21] MEDS: BISACODYL 10 MG SUPP PR (22:30)
[2018-01-22] MEDS: DOCUSATE SODIUM 100 MG CAP PO ×2 (08:56→22:00)
[2018-01-22] MEDS: FAMOTIDINE 20 MG TAB PO (08:56)
[2018-01-22] MEDS: LACTOBACILLUS RHAMNOSUS CAP PO ×2 (08:56→22:00)
[2018-01-22] MEDS: ASCORBIC ACID 500 MG TAB PO (08:56)
[2018-01-22] MEDS: MULTIVITAMINS/MINERALS TAB PO (08:57)
[2018-01-22] MEDS: ENOXAPARIN 30 MG/0.3 ML SYG SC (08:59)
[2018-01-22] MEDS: COLLAGENASE 5 GM (UD JAR) TOP (09:06)
[2018-01-22] MEDS: BALSAM PERU/CASTOR OIL 60 GM TUBE TOP (09:06)
[2018-01-22] MEDS: TAMSULOSIN (SR) 0.4 MG CAP PO (22:00)
[2018-01-22] MEDS: BISACODYL 10 MG SUPP PR (22:03)
[2018-01-23] MEDS: LACTOBACILLUS RHAMNOSUS CAP PO ×2 (08:54→19:56)
[2018-01-23] MEDS: ASCORBIC ACID 500 MG TAB PO (08:54)
[2018-01-23] MEDS: DOCUSATE SODIUM 100 MG CAP PO ×2 (08:54→19:56)
[2018-01-23] MEDS: FAMOTIDINE 20 MG TAB PO (08:54)
[2018-01-23] MEDS: COLLAGENASE 5 GM (UD JAR) TOP (08:54)
[2018-01-23] MEDS: MULTIVITAMINS/MINERALS TAB PO (08:54)
[2018-01-23] MEDS: ENOXAPARIN 30 MG/0.3 ML SYG SC (08:57)
[2018-01-23] MEDS: BALSAM PERU/CASTOR OIL 60 GM TUBE TOP (08:58)
[2018-01-23] MEDS: TAMSULOSIN (SR) 0.4 MG CAP PO (19:56)
== END 2018-01-23 21:28 | DRG 871 ==
LOC: 6WM 01-18 20:47 → 2NE 01-19 17:40 → E/R 16:39 → 6WM 19:05
DX: A41.9 Sepsis, unspecified organism (principal); L89.154 Pressure ulcer of sacral region, stage 4; R53.2 Functional quadriplegia; N17.0 Acute kidney failure with tubular necrosis; G92 Toxic encephalopathy; N39.0 Urinary tract infection, site not specified; E87.0 Hyperosmolality and hypernatremia; E46 Unspecified protein-calorie malnutrition; Z68.1 Body mass index [BMI] 19.9 or less, adult; E44.0 Moderate protein-calorie malnutrition; E86.0 Dehydration; F03.90 Unspecified dementia, unspecified severity, without behavioral disturbance, psychotic disturbance, mood disturbance, and anxiety; K21.9 Gastro-esophageal reflux disease without esophagitis; Z86.718 Personal history of other venous thrombosis and embolism; Z87.440 Personal history of urinary (tract) infections; I12.9 Hypertensive chronic kidney disease with stage 1 through stage 4 chronic kidney disease, or unspecified chronic kidney disease; N18.9 Chronic kidney disease, unspecified; N40.1 Benign prostatic hyperplasia with lower urinary tract symptoms; R33.8 Other retention of urine; N41.9 Inflammatory disease of prostate, unspecified
CPT/HCPCS: 76775; 80048; 80053; 81001; 81003; 82550; 82570; 83690; 84153; 84154; 84300; 84560; 85025; 85651; 86140; 87040; 87081; 87086; 89190; 96374; 96375; 99285-25

== ENCOUNTER 2018-02-13 17:51 | Inpatient (IN) | payer MEDICARE, MEDICAID ==
[2018-02-13 18:48] LABS: ABNORMAL IP MESSAGE 1; HEMATOCRIT 37.8 % (42.0-52.0); HEMOGLOBIN 11.9 g/dl (14.0-18.0); MEAN CORPUSCULAR HEMOGLOBIN 28.3 pg (29.0-33.0); MEAN CORPUSCULAR HGB CONC 31.5 g/dl (32.0-37.0); MEAN PLATELET VOLUME 12.3 fl (7.4-10.4); PLATELET COUNT 312 10^3/UL (140-415); POSITIVE DIFF @See below; RED CELL DISTRIBUTION WIDTH 17.5 % (11.5-14.5)
[2018-02-13] MEDS: ONDANSETRON 4 MG INJ IV (18:50)
[2018-02-13] MEDS: SOD CHLORIDE 0.9% 1,000 ML IV ×2 (18:50→20:04)
[2018-02-13] MEDS: PANTOPRAZOLE 40 MG INJ IV (18:51)
[2018-02-13 18:53] LABS: ADD MAN DIFF? YES
[2018-02-13 19:08] LABS: PARTIAL THROMBOPLASTIN TIME 30.5 Sec (23.0-35.0)
[2018-02-13 19:13] LABS: ANISOCYTOSIS 1+ (0-0); BAND NEUTROPHILS #M 7.7 10^3/ul (0.0-0.6); BAND NEUTROPHILS % (M) 25 % (0-4); EOSINOPHILS % (M) 1 % (0-7); GIANT THROMBO% (M) 2 % (0-0); LYMPHOCYTES #M 0.9 10^3/ul (0.8-2.9); LYMPHOCYTES % (M) 3 % (15-51); PLATELET ESTIMATE NORMAL; POIKILOCYTOSIS 1+ (0-0); POLYCHROMASIA 1+ (0-0); REACTIVE LYMPHOCYTES #M 0.3 10^3/ul (0.0-0.0); REACTIVE LYMPHOCYTES% (M) 1 % (0-0); SEG NEUT #M 24.1 10^3/ul (1.6-7.5); SEGMENTED NEUTROPHILS (M) % 70 % (39-77); SMUDGE%M 11 % (0-0)
[2018-02-13 19:15] LABS: INR 1.11; PROTIME 14.5 Sec (11.9-14.9); PT RATIO 1.1
[2018-02-13 19:20] LABS: TROPONIN-I 0.097 ng/ml (0.000-0.120)
[2018-02-13 19:24] LABS: ADD UMIC YES; UR ASCORBIC ACID NEGATIVE (NEGATIVE); UR BACTERIA MANY /HPF (NONE SEEN); UR BILIRUBIN (Dip) NEGATIVE (NEGATIVE); UR BLOOD (Dip) 2+ mg/dL (NEGATIVE); UR CLARITY CLOUDY (CLEAR); UR COLOR YELLOW (YELLOW); UR GLUCOSE (Dip) NEGATIVE (NEGATIVE); UR KETONES (Dip) NEGATIVE (NEGATIVE); UR LEUKOCYTE ESTERASE (Dip) 3+ Leu/ul (NEGATIVE); UR NITRITE (Dip) NEGATIVE (NEGATIVE); UR RBC 6 /HPF (0-5); UR SPECIFIC GRAVITY (Dip) 1.013 (1.003-1.030); UR TOTAL PROTEIN (Dip) 1+ mg/dl (NEGATIVE); UR UROBILINOGEN (Dip) 1+ mg/dL (NEGATIVE); UR WBC > 182 /HPF (0-5)
[2018-02-13] MEDS: CEFEPIME 1GM/50 ML (PMX) 50 ML IVPB (19:35)
[2018-02-13] MEDS ORDERED: NACL 0.9% 3 ML SYG IV (20:00)
[2018-02-13] MEDS ORDERED: ONDANSETRON 4 MG INJ IV (20:00)
[2018-02-13] MEDS ORDERED: morphine 2 MG INJ IV (20:00)
[2018-02-13] MEDS: FAMOTIDINE 20 MG INJ IV ×2 (20:04→20:06)
[2018-02-13 20:28] LABS: ALANINE AMINOTRANSFERASE 15 IU/L (13-69); ALBUMIN/GLOBULIN RATIO 0.93; ALKALINE PHOSPHATASE 126 IU/L (42-121); ANION GAP 14 (5-13); ASPARTATE AMINO TRANSFERASE 17 IU/L (15-46); BILIRUBIN,INDIRECT 0.1 mg/dl (0-1.1); BILIRUBIN,TOTAL 0.1 mg/dl (0.2-1.3); BLOOD UREA NITROGEN 86 mg/dl (7-20); CARBON DIOXIDE 23 mmol/L (21-31); CHLORIDE 109 mmol/L (97-110); CREATININE 2.87 mg/dl (0.61-1.24); GLUCOSE 118 mg/dl (70-220); POTASSIUM 5.2 mmol/L (3.5-5.1); SODIUM 146 mmol/L (135-144); TOTAL PROTEIN 6.2 g/dl (6.1-8.1)
[2018-02-13 20:29] LABS: LIPASE < 10 U/L (23-300)
[2018-02-14 05:29] LABS: ABNORMAL IP MESSAGE 1; HEMATOCRIT 36.1 % (42.0-52.0); HEMOGLOBIN 11.4 g/dl (14.0-18.0); MEAN CORPUSCULAR HEMOGLOBIN 28.2 pg (29.0-33.0); MEAN CORPUSCULAR HGB CONC 31.6 g/dl (32.0-37.0); MEAN CORPUSCULAR VOLUME 89.4 fl (82.0-101.0); MEAN PLATELET VOLUME 12.3 fl (7.4-10.4); PLATELET COUNT 270 10^3/UL (140-415); POSITIVE DIFF @See below; RED BLOOD COUNT 4.04 10^6/ul (4.70-6.10); RED CELL DISTRIBUTION WIDTH 17.3 % (11.5-14.5)
[2018-02-14 05:29] LABS: WHITE BLOOD COUNT 16.9 10^3/ul (4.8-10.8)
[2018-02-14 05:35] LABS: ADD MAN DIFF? YES
[2018-02-14] MEDS: SOD CHLORIDE 0.9% 1,000 ML IV ×4 (05:47→21:46)
[2018-02-14 06:24] LABS: ALANINE AMINOTRANSFERASE 16 IU/L (13-69); ALBUMIN 2.9 g/dl (3.3-4.9); ALKALINE PHOSPHATASE 137 IU/L (42-121); ANION GAP 15 (5-13); ASPARTATE AMINO TRANSFERASE 20 IU/L (15-46); BILIRUBIN,INDIRECT 0.3 mg/dl (0-1.1); BILIRUBIN,TOTAL 0.3 mg/dl (0.2-1.3); BLOOD UREA NITROGEN 99 mg/dl (7-20); CALCIUM 8.7 mg/dl (8.4-10.2); CARBON DIOXIDE 20 mmol/L (21-31); CHLORIDE 112 mmol/L (97-110); CREATININE 2.88 mg/dl (0.61-1.24); GLUCOSE 116 mg/dl (70-220); POTASSIUM 5.9 mmol/L (3.5-5.1); SODIUM 147 mmol/L (135-144); TOTAL PROTEIN 6.1 g/dl (6.1-8.1)
[2018-02-14] MEDS: CEFEPIME 1GM/50 ML (PMX) 50 ML IVPB ×2 (06:29→21:46)
[2018-02-14 07:11] LABS: HEMOGLOBIN A1C 5.2 % (0-5.9)
[2018-02-14 07:42] LABS: ANISOCYTOSIS 1+ (0-0); BAND NEUTROPHILS #M 2.7 10^3/ul (0.0-0.6); BAND NEUTROPHILS % (M) 16 % (0-4); BURR CELLS 1+ (0-0); GIANT THROMBO% (M) 2 % (0-0); LYMPHOCYTES #M 1.6 10^3/ul (0.8-2.9); LYMPHOCYTES % (M) 10 % (15-51); METAMYELOCYTES #M 0.1 10^3/ul (0.0-0.0); METAMYELOCYTES %M 1 % (0-0); MICROCYTOSIS 1+ (0-0); MONOCYTE #M 0.8 10^3/ul (0.3-0.9); MONOCYTES % (M) 5 % (0-11); PLATELET ESTIMATE NORMAL; POIKILOCYTOSIS 1+ (0-0); SEG NEUT #M 11.9 10^3/ul (1.6-7.5); SEGMENTED NEUTROPHILS (M) % 68 % (39-77); SMUDGE%M 7 % (0-0); SPHEROCYTES 1+ (0-0); TARGET CELLS 1+ (0-0)
[2018-02-14] MEDS ORDERED: ENOXAPARIN 30 MG/0.3 ML SYG SC (09:00)
[2018-02-14] MEDS: FAMOTIDINE 20 MG INJ IV (11:38)
[2018-02-14] MEDS: DILTIAZEM-D5W 125MG/125ML DRIP 125 ML IV (11:38)
[2018-02-14] MEDS: NA POLYST SULFON 15 GM/60 ML BTL NGT ×2 (12:22→14:00)
[2018-02-14] MEDS: SOD CHLORIDE 0.9% 500 ML IV ×2 (12:22→21:36)
[2018-02-14 13:40] LABS: Allen Test ACCEPTAB; Arterial Base Excess -5.5 mmol/L (-3.0-3); Arterial Blood Gas Oxygen Sat 94.8 mmHG (95.0-100.0); Arterial COHb 0.3 % (0.0-3.0); Arterial Fraction of Oxyhgb 94.3 % (93.0-99.0); Arterial MetHb 0.2 % (0.0-1.5); Arterial pCO2 24.4 mmhg (35-45); MODE NASAL CANNULA; Site Right Radial
[2018-02-14] MEDS: NA POLYST SULFON 15 GM/60 ML BTL PR (16:46)
[2018-02-14 22:36] LABS: AADO2 Arterial 620.1 mmHg (7.0-24.0); Arterial Base Excess -7.5 mmol/L (-3.0-3); Arterial Blood Gas Oxygen Sat 91.6 mmHG (95.0-100.0); Arterial COHb 0.3 % (0.0-3.0); Arterial Fraction of Oxyhgb 91.1 % (93.0-99.0); Arterial MetHb 0.3 % (0.0-1.5); Arterial pCO2 26.3 mmhg (35-45); MODE MASK - NRB; Site Right Brachial
[2018-02-15] MEDS ORDERED: SOD CHLORIDE 0.9% 1,000 ML IV (00:30)
[2018-02-15] MEDS: SOD CHLORIDE 0.9% 1,000 ML IV ×2 (03:59→09:50)
[2018-02-15 05:38] LABS: ANION GAP 10 (5-13); BLOOD UREA NITROGEN 116 mg/dl (7-20); CALCIUM 7.5 mg/dl (8.4-10.2); CARBON DIOXIDE 15 mmol/L (21-31); CHLORIDE 123 mmol/L (97-110); GLUCOSE 109 mg/dl (70-220); POTASSIUM 5.1 mmol/L (3.5-5.1); SODIUM 148 mmol/L (135-144)
[2018-02-15 05:56] LABS: CREATININE 3.66 mg/dl (0.61-1.24)
[2018-02-15 06:25] LABS: HEMATOCRIT 29.8 % (42.0-52.0); HEMOGLOBIN 9.5 g/dl (14.0-18.0); MEAN CORPUSCULAR HEMOGLOBIN 27.9 pg (29.0-33.0); MEAN CORPUSCULAR HGB CONC 31.9 g/dl (32.0-37.0); MEAN CORPUSCULAR VOLUME 87.6 fl (82.0-101.0); MEAN PLATELET VOLUME 12.2 fl (7.4-10.4); PLATELET COUNT 172 10^3/UL (140-415); POSITIVE DIFF @See below; RED CELL DISTRIBUTION WIDTH 17.5 % (11.5-14.5)
[2018-02-15 06:25] LABS: WHITE BLOOD COUNT 15.8 10^3/ul (4.8-10.8)
[2018-02-15 06:32] LABS: ADD MAN DIFF? YES
[2018-02-15 08:08] LABS: ANISOCYTOSIS 1+ (0-0); BAND NEUTROPHILS #M 2.3 10^3/ul (0.0-0.6); BAND NEUTROPHILS % (M) 15 % (0-4); BURR CELLS 3+ (0-0); LYMPHOCYTES #M 1.1 10^3/ul (0.8-2.9); LYMPHOCYTES % (M) 7 % (15-51); METAMYELOCYTES #M 0.1 10^3/ul (0.0-0.0); METAMYELOCYTES %M 1 % (0-0); MONOCYTE #M 1.4 10^3/ul (0.3-0.9); MONOCYTES % (M) 9 % (0-11); MYELOCYTES #M 0.1 10^3/ul (0.0-0.0); MYELOCYTES % (M) 1 % (0-0); PLATELET ESTIMATE NORMAL; POIKILOCYTOSIS 3+ (0-0); POLYCHROMASIA 1+ (0-0); REACTIVE LYMPHOCYTES #M 0.3 10^3/ul (0.0-0.0); REACTIVE LYMPHOCYTES% (M) 2 % (0-0); SEG NEUT #M 10.6 10^3/ul (1.6-7.5); SEGMENTED NEUTROPHILS (M) % 65 % (39-77); SMUDGE%M 6 % (0-0); TOXIC GRANULATION 1+ (0-0)
[2018-02-15] MEDS: FAMOTIDINE 20 MG INJ IV (08:34)
[2018-02-15] MEDS: CEFEPIME 1GM/50 ML (PMX) 50 ML IVPB ×2 (08:37→20:00)
[2018-02-15 10:21] LABS: AADO2 Arterial 323.6 mmHg (7.0-24.0); Allen Test ACCEPTAB; Arterial Base Excess -6.9 mmol/L (-3.0-3); Arterial COHb 0.3 % (0.0-3.0); Arterial Fraction of Oxyhgb 94.3 % (93.0-99.0); Arterial HCO3 16.6 mmol/L (22.0-26.0); Arterial MetHb 0.4 % (0.0-1.5); Arterial pCO2 27.5 mmhg (35-45); MODE MASK - SIMPLE; Site Left Radial
[2018-02-15] MEDS ORDERED: LIDOCAINE 100 MG SYRINGE (13:31)
[2018-02-15] MEDS: LACTATED RINGER'S 500 ML IV ×2 (14:00→16:00)
[2018-02-15] MEDS: DEXTROSE 5% WATER 500 ML BAG IV (14:03)
[2018-02-15] MEDS: SODIUM BICARBONATE (IV ADD) 150 MEQ in DEXTROSE 5% 1,000 ML IV (16:59)
[2018-02-16] MEDS: SODIUM BICARBONATE (IV ADD) 150 MEQ in DEXTROSE 5% 1,000 ML IV ×2 (01:58→06:16)
[2018-02-16 04:59] LABS: WHITE BLOOD COUNT 13.3 10^3/ul (4.8-10.8)
[2018-02-16 04:59] LABS: ABNORMAL IP MESSAGE 1; HEMATOCRIT 22.9 % (42.0-52.0); HEMOGLOBIN 7.6 g/dl (14.0-18.0); MEAN CORPUSCULAR HEMOGLOBIN 28.5 pg (29.0-33.0); MEAN CORPUSCULAR HGB CONC 33.2 g/dl (32.0-37.0); MEAN CORPUSCULAR VOLUME 85.8 fl (82.0-101.0); MEAN PLATELET VOLUME 12.6 fl (7.4-10.4); PLATELET COUNT 129 10^3/UL (140-415); POSITIVE DIFF @See below; RED BLOOD COUNT 2.67 10^6/ul (4.70-6.10); RED CELL DISTRIBUTION WIDTH 17.4 % (11.5-14.5)
[2018-02-16 05:04] LABS: ADD MAN DIFF? YES
[2018-02-16 05:32] LABS: ANION GAP 8 (5-13); CALCIUM 7.3 mg/dl (8.4-10.2); CARBON DIOXIDE 23 mmol/L (21-31); CHLORIDE 124 mmol/L (97-110); CREATININE 3.22 mg/dl (0.61-1.24); GLUCOSE 117 mg/dl (70-220); POTASSIUM 3.4 mmol/L (3.5-5.1); SODIUM 155 mmol/L (135-144)
[2018-02-16 05:38] LABS: LACTIC ACID 2.2 mmol/L (0.5-2.0)
[2018-02-16 05:59] LABS: THYROID STIMULATING HORMONE 0.826 MIU/L (0.465-4.680)
[2018-02-16 06:01] LABS: AADO2 Arterial 91.5 mmHg (7.0-24.0); Allen Test ACCEPTAB; Arterial Base Excess -0.7 mmol/L (-3.0-3); Arterial Blood Gas Oxygen Sat 95.1 mmHG (95.0-100.0); Arterial COHb 0.2 % (0.0-3.0); Arterial Fraction of Oxyhgb 94.4 % (93.0-99.0); Arterial HCO3 21.7 mmol/L (22.0-26.0); Arterial MetHb 0.5 % (0.0-1.5); Arterial pCO2 28.6 mmhg (35-45); MODE NASAL CANNULA; Site Right Radial
[2018-02-16 06:43] LABS: BLOOD UREA NITROGEN 129 mg/dl (7-20)
[2018-02-16 08:31] LABS: BAND NEUTROPHILS #M 0.6 10^3/ul (0.0-0.6); BAND NEUTROPHILS % (M) 5 % (0-4); GIANT THROMBO% (M) 2 % (0-0); LYMPHOCYTES #M 1.3 10^3/ul (0.8-2.9); LYMPHOCYTES % (M) 10 % (15-51); MONOCYTE #M 0.6 10^3/ul (0.3-0.9); MONOCYTES % (M) 5 % (0-11); PLATELET ESTIMATE DECREASED; POIKILOCYTOSIS 1+ (0-0); PROMYELOCYTES #M 0.1 10^3/ul (0-0); PROMYELOCYTES % (M) 1 % (0-0); SEG NEUT #M 10.6 10^3/ul (1.6-7.5); SEGMENTED NEUTROPHILS (M) % 79 % (39-77); SMUDGE%M 58 % (0-0); TARGET CELLS 1+ (0-0)
[2018-02-16] MEDS: CEFEPIME 1GM/50 ML (PMX) 50 ML IVPB ×2 (10:22→21:51)
[2018-02-16] MEDS: FAMOTIDINE 20 MG INJ IV (10:22)
[2018-02-16] MEDS: SODIUM BICARBONATE (IV ADD) 100 MEQ in DEXTROSE 5% 1,000 ML IV (15:12)
[2018-02-16] MEDS: SOD CHLORIDE 0.9% 500 ML IV (19:21)
[2018-02-16 19:57] LABS: ADD MAN DIFF? NO
[2018-02-16 19:58] LABS: WHITE BLOOD COUNT 13.3 10^3/ul (4.8-10.8)
[2018-02-16 19:58] LABS: ABNORMAL IP MESSAGE 1; BASOPHIL # 0.1 10^3/ul (0.0-0.1); BASOPHILS % 0.4 % (0.0-2.0); EOSINOPHILS % 0.2 % (0.0-7.0); HEMATOCRIT 23.2 % (42.0-52.0); HEMOGLOBIN 7.6 g/dl (14.0-18.0); LYMPHOCYTES % 7.4 % (15.0-51.0); MEAN CORPUSCULAR HEMOGLOBIN 28.3 pg (29.0-33.0); MEAN CORPUSCULAR HGB CONC 32.8 g/dl (32.0-37.0); MEAN CORPUSCULAR VOLUME 86.2 fl (82.0-101.0); MEAN PLATELET VOLUME 12.5 fl (7.4-10.4); MONOCYTE # 0.6 10^3/ul (0.3-0.9); MONOCYTES % 4.6 % (0.0-11.0); NEUTROPHIL # 11.5 10^3/ul (1.6-7.5); NEUTROPHILS % 86.3 % (39.0-77.0); PLATELET COUNT 114 10^3/UL (140-415); POSITIVE DIFF @See below; RED BLOOD COUNT 2.69 10^6/ul (4.70-6.10); RED CELL DISTRIBUTION WIDTH 17.4 % (11.5-14.5)
[2018-02-16 20:19] LABS: ANION GAP 4 (5-13); BLOOD UREA NITROGEN 119 mg/dl (7-20); CARBON DIOXIDE 28 mmol/L (21-31); CHLORIDE 123 mmol/L (97-110); CREATININE 2.59 mg/dl (0.61-1.24); GLUCOSE 88 mg/dl (70-220); SODIUM 155 mmol/L (135-144)
[2018-02-16 20:30] LABS: POTASSIUM 2.7 mmol/L (3.5-5.1)
[2018-02-16] MEDS: POTASSIUM CHLORIDE 50 ML IVPB ×2 (21:51→23:43)
[2018-02-16 22:46] LABS: ANISOCYTOSIS 1+ (0-0); BAND NEUTROPHILS #M 4.1 10^3/ul (0.0-0.6); BAND NEUTROPHILS % (M) 31 % (0-4); EOSINOPHILS % (M) 2 % (0-7); GIANT THROMBO% (M) 2 % (0-0); LYMPHOCYTES #M 0.5 10^3/ul (0.8-2.9); LYMPHOCYTES % (M) 4 % (15-51); MONOCYTE #M 0.7 10^3/ul (0.3-0.9); MONOCYTES % (M) 6 % (0-11); PLATELET ESTIMATE DECREASED; POLYCHROMASIA 2+ (0-0); SEG NEUT #M 8.1 10^3/ul (1.6-7.5); SEGMENTED NEUTROPHILS (M) % 57 % (39-77); SMUDGE%M 5 % (0-0)
[2018-02-16] MEDS: DOPamine-D5W 1.6 MG/ML 250 ML IV (23:04)
[2018-02-17 04:52] LABS: HEMATOCRIT 26.3 % (42.0-52.0); HEMOGLOBIN 8.7 g/dl (14.0-18.0); MEAN CORPUSCULAR HEMOGLOBIN 28.5 pg (29.0-33.0); MEAN CORPUSCULAR HGB CONC 33.1 g/dl (32.0-37.0); MEAN CORPUSCULAR VOLUME 86.2 fl (82.0-101.0); MEAN PLATELET VOLUME 12.8 fl (7.4-10.4); NUCLEATED RED BLOOD CELLS% 0.2 /100WBC (0.0-0.0); PLATELET COUNT 147 10^3/UL (140-415); POSITIVE DIFF @See below; RED BLOOD COUNT 3.05 10^6/ul (4.70-6.10); RED CELL DISTRIBUTION WIDTH 17.4 % (11.5-14.5)
[2018-02-17 04:52] LABS: WHITE BLOOD COUNT 18.8 10^3/ul (4.8-10.8)
[2018-02-17 04:55] LABS: ADD MAN DIFF? YES
[2018-02-17 05:07] LABS: AADO2 Arterial 107.8 mmHg (7.0-24.0); Allen Test ACCEPTAB; Arterial Base Excess 3.5 mmol/L (-3.0-3); Arterial COHb 0.5 % (0.0-3.0); Arterial HCO3 26.4 mmol/L (22.0-26.0); Arterial MetHb 0.6 % (0.0-1.5); Arterial pCO2 32.7 mmhg (35-45); MODE NASAL CANNULA; Site Right Radial
[2018-02-17 05:15] LABS: ANION GAP 6 (5-13); BLOOD UREA NITROGEN 112 mg/dl (7-20); CALCIUM 7.6 mg/dl (8.4-10.2); CARBON DIOXIDE 28 mmol/L (21-31); CHLORIDE 124 mmol/L (97-110); CREATININE 2.62 mg/dl (0.61-1.24); GLUCOSE 101 mg/dl (70-220); POTASSIUM 3.3 mmol/L (3.5-5.1); SODIUM 158 mmol/L (135-144)
[2018-02-17 06:16] LABS: CREATININE,URINE RANDOM 34.85 mg/dl (20-370)
[2018-02-17 06:16] LABS: SODIUM,URINE RANDOM 39 mmol/L (30-90)
[2018-02-17] MEDS ORDERED: COLLAGENASE 5 GM (UD JAR) TOP (07:47)
[2018-02-17] MEDS: FAMOTIDINE 20 MG INJ IV (08:22)
[2018-02-17] MEDS: COLLAGENASE 5 GM (UD JAR) TOP (08:22)
[2018-02-17] MEDS: SODIUM BICARBONATE (IV ADD) 100 MEQ in DEXTROSE 5% 1,000 ML IV (08:26)
[2018-02-17] MEDS: CEFEPIME 1GM/50 ML (PMX) 50 ML IVPB (08:32)
[2018-02-17 10:16] LABS: ANISOCYTOSIS 1+ (0-0); BAND NEUTROPHILS #M 4.8 10^3/ul (0.0-0.6); BAND NEUTROPHILS % (M) 26 % (0-4); GIANT THROMBO% (M) 4 % (0-0); LYMPHOCYTES #M 1.3 10^3/ul (0.8-2.9); LYMPHOCYTES % (M) 7 % (15-51); METAMYELOCYTES #M 0.1 10^3/ul (0.0-0.0); METAMYELOCYTES %M 1 % (0-0); MONOCYTE #M 0.5 10^3/ul (0.3-0.9); MONOCYTES % (M) 3 % (0-11); PLATELET ESTIMATE NORMAL; POLYCHROMASIA 1+ (0-0); REACTIVE LYMPHOCYTES #M 0.1 10^3/ul (0.0-0.0); REACTIVE LYMPHOCYTES% (M) 1 % (0-0); SEG NEUT #M 12.6 10^3/ul (1.6-7.5); SEGMENTED NEUTROPHILS (M) % 62 % (39-77); SMUDGE%M 116 % (0-0)
[2018-02-17] MEDS: POTASSIUM CHLORIDE 50 ML IVPB ×2 (10:29→12:12)
[2018-02-17] MEDS: DEXTROSE 5%-0.9% NACL 1,000 ML IV ×2 (10:38→23:45)
[2018-02-17] MEDS: MUPIROCIN 2% 22 GM OINT TOP ×2 (12:12→20:50)
[2018-02-17] MEDS: ALBUMIN HUMAN 25% 100 ML IV (15:57)
[2018-02-17] MEDS ORDERED: GENTAMICIN 60 MG in SOD CHLORIDE 0.9% 50 ML IVPB (16:00)
[2018-02-17 16:28] LABS: SODIUM,URINE RANDOM 38 mmol/L (30-90)
[2018-02-17 16:46] LABS: CREATININE,URINE RANDOM 34.74 mg/dl (20-370); PROTEIN/CREAT RATIO 3.13 RATIO
[2018-02-17] MEDS: SOD CHLORIDE 0.9% 500 ML IV (16:59)
[2018-02-17] MEDS: FUROSEMIDE 40 MG INJ IV (17:45)
[2018-02-17] MEDS: MEROPENEM 500MG/50 ML (PMX) 50 ML IVPB (17:46)
[2018-02-17] MEDS ORDERED: PIPER-TAZO 3.375 GM IV (PMX) 100 ML IVPB (18:00)
[2018-02-18] MEDS: DEXTROSE 5%-0.9% NACL 1,000 ML IV (05:08)
[2018-02-18] MEDS: MEROPENEM 500MG/50 ML (PMX) 50 ML IVPB ×2 (05:08→18:02)
[2018-02-18 06:01] LABS: HEMATOCRIT 27.6 % (42.0-52.0); MEAN CORPUSCULAR HEMOGLOBIN 28.6 pg (29.0-33.0); MEAN CORPUSCULAR HGB CONC 32.6 g/dl (32.0-37.0); MEAN CORPUSCULAR VOLUME 87.6 fl (82.0-101.0); MEAN PLATELET VOLUME 12.9 fl (7.4-10.4); PLATELET COUNT 129 10^3/UL (140-415); POSITIVE DIFF @See below; RED BLOOD COUNT 3.15 10^6/ul (4.70-6.10); RED CELL DISTRIBUTION WIDTH 17.2 % (11.5-14.5)
[2018-02-18 06:01] LABS: WHITE BLOOD COUNT 22.9 10^3/ul (4.8-10.8)
[2018-02-18 06:14] LABS: CREATINE KINASE 128 IU/L (23-200)
[2018-02-18 06:14] LABS: URIC ACID 11.3 mg/dl (3.1-7.9)
[2018-02-18 06:15] LABS: ADD MAN DIFF? YES
[2018-02-18 06:17] LABS: ANION GAP 9 (5-13); BLOOD UREA NITROGEN 117 mg/dl (7-20); CALCIUM 7.7 mg/dl (8.4-10.2); CARBON DIOXIDE 28 mmol/L (21-31); CHLORIDE 123 mmol/L (97-110); CREATININE 3.64 mg/dl (0.61-1.24); GLUCOSE 119 mg/dl (70-220); POTASSIUM 3.2 mmol/L (3.5-5.1); SODIUM 160 mmol/L (135-144)
[2018-02-18 07:24] LABS: BAND NEUTROPHILS #M 0.4 10^3/ul (0.0-0.6); BAND NEUTROPHILS % (M) 2 % (0-4); LYMPHOCYTES #M 0.4 10^3/ul (0.8-2.9); LYMPHOCYTES % (M) 2 % (15-51); MONOCYTE #M 0.6 10^3/ul (0.3-0.9); MONOCYTES % (M) 3 % (0-11); PLATELET ESTIMATE DECREASED; POLYCHROMASIA 1+ (0-0); ROULEAU 1+ (0-0); SEG NEUT #M 21.4 10^3/ul (1.6-7.5); SEGMENTED NEUTROPHILS (M) % 93 % (39-77); SMUDGE%M 6 % (0-0); TOXIC GRANULATION 1+ (0-0)
[2018-02-18] MEDS: MUPIROCIN 2% 22 GM OINT TOP ×2 (08:54→21:44)
[2018-02-18] MEDS: FAMOTIDINE 20 MG INJ IV (08:54)
[2018-02-18 08:57] LABS: AADO2 Arterial 68.3 mmHg (7.0-24.0); Allen Test ACCEPTAB; Arterial Base Excess 3.2 mmol/L (-3.0-3); Arterial Blood Gas Oxygen Sat 95.7 mmHG (95.0-100.0); Arterial COHb 0.3 % (0.0-3.0); Arterial HCO3 26.4 mmol/L (22.0-26.0); Arterial MetHb 0.4 % (0.0-1.5); Arterial pCO2 35.1 mmhg (35-45); MODE NASAL CANNULA; Site Right Radial
[2018-02-18] MEDS: COLLAGENASE 5 GM (UD JAR) TOP (09:00)
[2018-02-18] MEDS ORDERED: VANCOMYCIN IV PER PHARMACY XX (10:00)
[2018-02-18] MEDS: VANCOMYCIN 1.25 GM in DEXTROSE 5% 250 ML IVPB (14:23)
[2018-02-18] MEDS: POTASSIUM CHLORIDE 10 MEQ in DEXTROSE 5% 1,000 ML IV (16:01)
[2018-02-19] MEDS: POTASSIUM CHLORIDE 10 MEQ in DEXTROSE 5% 1,000 ML IV ×2 (03:04→04:01)
[2018-02-19] MEDS: MEROPENEM 500MG/50 ML (PMX) 50 ML IVPB ×2 (04:01→18:01)
[2018-02-19 04:39] LABS: ADD MAN DIFF? NO
[2018-02-19 04:42] LABS: WHITE BLOOD COUNT 19.7 10^3/ul (4.8-10.8)
[2018-02-19 04:42] LABS: ABNORMAL IP MESSAGE 1; BASOPHIL # 0.1 10^3/ul (0.0-0.1); BASOPHILS % 0.4 % (0.0-2.0); EOSINOPHILS # 0.5 10^3/ul (0.0-0.5); EOSINOPHILS % 2.5 % (0.0-7.0); HEMATOCRIT 26.3 % (42.0-52.0); HEMOGLOBIN 8.3 g/dl (14.0-18.0); LYMPHOCYTES # 1.6 10^3/ul (0.8-2.9); LYMPHOCYTES % 8.3 % (15.0-51.0); MEAN CORPUSCULAR HEMOGLOBIN 28.3 pg (29.0-33.0); MEAN CORPUSCULAR HGB CONC 31.6 g/dl (32.0-37.0); MEAN CORPUSCULAR VOLUME 89.8 fl (82.0-101.0); MEAN PLATELET VOLUME 13.1 fl (7.4-10.4); MONOCYTE # 0.6 10^3/ul (0.3-0.9); MONOCYTES % 2.8 % (0.0-11.0); NEUTROPHIL # 16.3 10^3/ul (1.6-7.5); NEUTROPHILS % 83.1 % (39.0-77.0); PLATELET COUNT 127 10^3/UL (140-415); POSITIVE DIFF @See below; RED BLOOD COUNT 2.93 10^6/ul (4.70-6.10); RED CELL DISTRIBUTION WIDTH 17.5 % (11.5-14.5)
[2018-02-19 05:06] LABS: ANION GAP 6 (5-13); BLOOD UREA NITROGEN 90 mg/dl (7-20); CALCIUM 7.7 mg/dl (8.4-10.2); CARBON DIOXIDE 30 mmol/L (21-31); CHLORIDE 129 mmol/L (97-110); CREATININE 2.36 mg/dl (0.61-1.24); GLUCOSE 108 mg/dl (70-220); MAGNESIUM 2.4 mg/dl (1.7-2.5); PHOSPHORUS 3.4 mg/dl (2.5-4.9)
[2018-02-19 05:13] LABS: POTASSIUM 2.9 mmol/L (3.5-5.1); SODIUM 165 mmol/L (135-144)
[2018-02-19] MEDS: MUPIROCIN 2% 22 GM OINT TOP ×2 (08:05→20:53)
[2018-02-19] MEDS: COLLAGENASE 5 GM (UD JAR) TOP (08:05)
[2018-02-19] MEDS: FAMOTIDINE 20 MG INJ IV (08:05)
[2018-02-19] MEDS: POTASSIUM CHLORIDE 50 ML IVPB ×2 (09:06→11:04)
[2018-02-19 09:25] LABS: ANISOCYTOSIS 1+ (0-0); BAND NEUTROPHILS #M 1.3 10^3/ul (0.0-0.6); BAND NEUTROPHILS % (M) 7 % (0-4); EOSINOPHILS % (M) 1 % (0-7); GIANT THROMBO% (M) 9 % (0-0); LYMPHOCYTES #M 0.1 10^3/ul (0.8-2.9); LYMPHOCYTES % (M) 1 % (15-51); MONOCYTE #M 0.3 10^3/ul (0.3-0.9); MONOCYTES % (M) 2 % (0-11); PLATELET ESTIMATE NORMAL; PLATELET MORPHOLOGY COMMENT @See below; POLYCHROMASIA 1+ (0-0); REACTIVE LYMPHOCYTES #M 0.1 10^3/ul (0.0-0.0); REACTIVE LYMPHOCYTES% (M) 1 % (0-0); SEG NEUT #M 17.6 10^3/ul (1.6-7.5); SEGMENTED NEUTROPHILS (M) % 88 % (39-77); SMUDGE%M 133 % (0-0)
[2018-02-19 10:13] LABS: IMMEDIATE SPIN CROSSMATCH 1 2
[2018-02-19] MEDS: DEXTROSE 5%-0.45% NACL 1,000 ML IV (10:32)
[2018-02-19] MEDS: DEXTROSE 5% 1,000 ML IV (12:24)
[2018-02-19] MEDS: PANTOPRAZOLE 40 MG INJ IV (17:12)
[2018-02-19 17:30] LABS: INR 1.35; PROTIME 16.8 Sec (11.9-14.9); PT RATIO 1.3
[2018-02-19 17:35] LABS: ANION GAP 0 (5-13); BLOOD UREA NITROGEN 75 mg/dl (7-20); CALCIUM 7.6 mg/dl (8.4-10.2); CARBON DIOXIDE 27 mmol/L (21-31); CHLORIDE 133 mmol/L (97-110); CREATININE 1.63 mg/dl (0.61-1.24); GLUCOSE 111 mg/dl (70-220); POTASSIUM 3.2 mmol/L (3.5-5.1); SODIUM 160 mmol/L (135-144)
[2018-02-19] MEDS ORDERED: PANTOPRAZOLE (EC) 40 MG TAB PO (18:00)
[2018-02-19] MEDS: POTASSIUM CHLORIDE 20 MEQ POWDER FOR ORAL SOLN NGT ×2 (18:45→21:30)
[2018-02-20] MEDS: MEROPENEM 500MG/50 ML (PMX) 50 ML IVPB ×2 (05:01→17:19)
[2018-02-20] MEDS: PANTOPRAZOLE 40 MG INJ IV ×2 (05:01→17:18)
[2018-02-20 05:10] LABS: ABNORMAL IP MESSAGE 1; HEMATOCRIT 31.1 % (42.0-52.0); HEMOGLOBIN 10.1 g/dl (14.0-18.0); MEAN CORPUSCULAR HEMOGLOBIN 29.2 pg (29.0-33.0); MEAN CORPUSCULAR HGB CONC 32.5 g/dl (32.0-37.0); MEAN CORPUSCULAR VOLUME 89.9 fl (82.0-101.0); MEAN PLATELET VOLUME 13.4 fl (7.4-10.4); PLATELET COUNT 133 10^3/UL (140-415); POSITIVE DIFF @See below; RED BLOOD COUNT 3.46 10^6/ul (4.70-6.10); RED CELL DISTRIBUTION WIDTH 17.2 % (11.5-14.5)
[2018-02-20 05:10] LABS: WHITE BLOOD COUNT 19.8 10^3/ul (4.8-10.8)
[2018-02-20 05:36] LABS: VANCOMYCIN,RANDOM 7.8 ug/ml
[2018-02-20 05:36] LABS: ANION GAP 3 (5-13); BLOOD UREA NITROGEN 61 mg/dl (7-20); CALCIUM 7.8 mg/dl (8.4-10.2); CARBON DIOXIDE 30 mmol/L (21-31); CHLORIDE 130 mmol/L (97-110); CREATININE 1.56 mg/dl (0.61-1.24); GLUCOSE 107 mg/dl (70-220); POTASSIUM 3.9 mmol/L (3.5-5.1)
[2018-02-20 05:42] LABS: SODIUM 163 mmol/L (135-144)
[2018-02-20 05:49] LABS: ADD MAN DIFF? YES
[2018-02-20 07:17] LABS: ANISOCYTOSIS 1+ (0-0); BAND NEUTROPHILS #M 1.7 10^3/ul (0.0-0.6); BAND NEUTROPHILS % (M) 9 % (0-4); EOSINOPHILS % (M) 2 % (0-7); GIANT THROMBO% (M) 1 % (0-0); MICROCYTOSIS 1+ (0-0); MONOCYTE #M 0.5 10^3/ul (0.3-0.9); MONOCYTES % (M) 3 % (0-11); PLATELET ESTIMATE NORMAL; POIKILOCYTOSIS 1+ (0-0); POLYCHROMASIA 1+ (0-0); REACTIVE LYMPHOCYTES #M 0.1 10^3/ul (0.0-0.0); REACTIVE LYMPHOCYTES% (M) 1 % (0-0); SEG NEUT #M 17.2 10^3/ul (1.6-7.5); SEGMENTED NEUTROPHILS (M) % 85 % (39-77); SMUDGE%M 13 % (0-0); TARGET CELLS 1+ (0-0)
[2018-02-20] MEDS: COLLAGENASE 5 GM (UD JAR) TOP (09:47)
[2018-02-20] MEDS: MUPIROCIN 2% 22 GM OINT TOP ×2 (09:47→21:40)
[2018-02-20] MEDS: DEXTROSE 5% 1,000 ML IV (09:47)
[2018-02-20] MEDS ORDERED: VANCOMYCIN 1 GM 250 ML IVPB (12:30)
[2018-02-20] MEDS ORDERED: VANCOMYCIN 1 GM in DEXTROSE 5% 250 ML IVPB (13:30)
[2018-02-20] MEDS: VANCOMYCIN 1 GM in DEXTROSE 5% 250 ML IVPB (14:35)
[2018-02-20] MEDS: PROPOFOL 20 ML (17:17)
[2018-02-21] MEDS: DEXTROSE 5% 1,000 ML IV ×2 (04:30→10:43)
[2018-02-21 04:56] LABS: ADD MAN DIFF? NO
[2018-02-21 05:00] LABS: WHITE BLOOD COUNT 16.5 10^3/ul (4.8-10.8)
[2018-02-21 05:00] LABS: ABNORMAL IP MESSAGE 1; BASOPHILS % 0.2 % (0.0-2.0); EOSINOPHILS # 0.4 10^3/ul (0.0-0.5); EOSINOPHILS % 2.4 % (0.0-7.0); HEMATOCRIT 31.9 % (42.0-52.0); HEMOGLOBIN 9.6 g/dl (14.0-18.0); LYMPHOCYTES # 1.4 10^3/ul (0.8-2.9); LYMPHOCYTES % 8.6 % (15.0-51.0); MEAN CORPUSCULAR HEMOGLOBIN 28.3 pg (29.0-33.0); MEAN CORPUSCULAR HGB CONC 30.1 g/dl (32.0-37.0); MEAN CORPUSCULAR VOLUME 94.1 fl (82.0-101.0); MEAN PLATELET VOLUME 13.4 fl (7.4-10.4); MONOCYTE # 0.6 10^3/ul (0.3-0.9); MONOCYTES % 3.6 % (0.0-11.0); NEUTROPHIL # 13.8 10^3/ul (1.6-7.5); NEUTROPHILS % 83.6 % (39.0-77.0); PLATELET COUNT 129 10^3/UL (140-415); POSITIVE DIFF @See below; RED BLOOD COUNT 3.39 10^6/ul (4.70-6.10); RED CELL DISTRIBUTION WIDTH 17.2 % (11.5-14.5)
[2018-02-21 05:22] LABS: ANION GAP 0 (5-13); BLOOD UREA NITROGEN 48 mg/dl (7-20); CALCIUM 7.6 mg/dl (8.4-10.2); CARBON DIOXIDE 27 mmol/L (21-31); CHLORIDE 131 mmol/L (97-110); CREATININE 1.25 mg/dl (0.61-1.24); GLUCOSE 137 mg/dl (70-220); POTASSIUM 3.5 mmol/L (3.5-5.1); SODIUM 158 mmol/L (135-144)
[2018-02-21] MEDS: MEROPENEM 500MG/50 ML (PMX) 50 ML IVPB ×2 (05:41→17:18)
[2018-02-21] MEDS: PANTOPRAZOLE 40 MG INJ IV ×2 (05:41→17:18)
[2018-02-21] MEDS: MUPIROCIN 2% 22 GM OINT TOP ×2 (08:20→21:08)
[2018-02-21] MEDS: COLLAGENASE 5 GM (UD JAR) TOP (09:04)
[2018-02-21] MEDS: VANCOMYCIN 750 MG in DEXTROSE 5% 150 ML IVPB (13:30)
[2018-02-22 05:27] LABS: ADD MAN DIFF? NO
[2018-02-22 05:28] LABS: ABNORMAL IP MESSAGE 1; BASOPHILS % 0.2 % (0.0-2.0); EOSINOPHILS # 0.4 10^3/ul (0.0-0.5); EOSINOPHILS % 2.4 % (0.0-7.0); HEMATOCRIT 31.5 % (42.0-52.0); HEMOGLOBIN 9.6 g/dl (14.0-18.0); LYMPHOCYTES # 1.7 10^3/ul (0.8-2.9); LYMPHOCYTES % 9.1 % (15.0-51.0); MEAN CORPUSCULAR HEMOGLOBIN 28.3 pg (29.0-33.0); MEAN CORPUSCULAR HGB CONC 30.5 g/dl (32.0-37.0); MEAN CORPUSCULAR VOLUME 92.9 fl (82.0-101.0); MEAN PLATELET VOLUME 13.3 fl (7.4-10.4); MONOCYTE # 0.7 10^3/ul (0.3-0.9); MONOCYTES % 3.6 % (0.0-11.0); NEUTROPHIL # 15.4 10^3/ul (1.6-7.5); NEUTROPHILS % 83.1 % (39.0-77.0); PLATELET COUNT 142 10^3/UL (140-415); POSITIVE DIFF @See below; RED BLOOD COUNT 3.39 10^6/ul (4.70-6.10)
[2018-02-22 05:28] LABS: WHITE BLOOD COUNT 18.5 10^3/ul (4.8-10.8)
[2018-02-22 05:46] LABS: ANION GAP -4 (5-13); BLOOD UREA NITROGEN 41 mg/dl (7-20); CALCIUM 7.4 mg/dl (8.4-10.2); CARBON DIOXIDE 29 mmol/L (21-31); CHLORIDE 128 mmol/L (97-110); CREATININE 1.08 mg/dl (0.61-1.24); GLUCOSE 124 mg/dl (70-220); POTASSIUM 3.3 mmol/L (3.5-5.1); SODIUM 153 mmol/L (135-144)
[2018-02-22] MEDS: MEROPENEM 500MG/50 ML (PMX) 50 ML IVPB ×2 (05:52→17:12)
[2018-02-22] MEDS: PANTOPRAZOLE 40 MG INJ IV ×2 (05:52→17:12)
[2018-02-22] MEDS: DEXTROSE 5% 1,000 ML IV (07:21)
[2018-02-22] MEDS: MUPIROCIN 2% 22 GM OINT TOP ×2 (08:55→21:53)
[2018-02-22] MEDS: COLLAGENASE 5 GM (UD JAR) TOP (08:57)
[2018-02-22] MEDS: VANCOMYCIN 750 MG in DEXTROSE 5% 150 ML IVPB (14:49)
[2018-02-22] MEDS: MIDODRINE 5 MG TAB PO ×2 (14:55→21:53)
[2018-02-22] MEDS: morphine 4 MG/ML VIAL IV ×2 (17:58→21:59)
[2018-02-23 05:16] LABS: ADD MAN DIFF? NO
[2018-02-23 05:30] LABS: ABNORMAL IP MESSAGE 1; BASOPHILS % 0.1 % (0.0-2.0); EOSINOPHILS # 0.4 10^3/ul (0.0-0.5); EOSINOPHILS % 2.3 % (0.0-7.0); HEMATOCRIT 28.5 % (42.0-52.0); HEMOGLOBIN 8.7 g/dl (14.0-18.0); LYMPHOCYTES # 1.6 10^3/ul (0.8-2.9); LYMPHOCYTES % 8.4 % (15.0-51.0); MEAN CORPUSCULAR HEMOGLOBIN 28.6 pg (29.0-33.0); MEAN CORPUSCULAR HGB CONC 30.5 g/dl (32.0-37.0); MEAN CORPUSCULAR VOLUME 93.8 fl (82.0-101.0); MEAN PLATELET VOLUME 13.7 fl (7.4-10.4); MONOCYTE # 0.7 10^3/ul (0.3-0.9); MONOCYTES % 3.8 % (0.0-11.0); NEUTROPHIL # 16.3 10^3/ul (1.6-7.5); NEUTROPHILS % 84.1 % (39.0-77.0); PLATELET COUNT 135 10^3/UL (140-415); POSITIVE DIFF @See below; RED BLOOD COUNT 3.04 10^6/ul (4.70-6.10); RED CELL DISTRIBUTION WIDTH 17.2 % (11.5-14.5)
[2018-02-23 05:30] LABS: WHITE BLOOD COUNT 19.4 10^3/ul (4.8-10.8)
[2018-02-23] MEDS: MEROPENEM 500MG/50 ML (PMX) 50 ML IVPB ×2 (05:30→16:36)
[2018-02-23] MEDS: PANTOPRAZOLE 40 MG INJ IV ×2 (05:41→18:20)
[2018-02-23] MEDS: MIDODRINE 5 MG TAB PO ×3 (05:41→20:07)
[2018-02-23 06:02] LABS: BLOOD UREA NITROGEN 37 mg/dl (7-20); CALCIUM 7.3 mg/dl (8.4-10.2); CARBON DIOXIDE 28 mmol/L (21-31); CHLORIDE 123 mmol/L (97-110); CREATININE 0.99 mg/dl (0.61-1.24); GLUCOSE 126 mg/dl (70-220); SODIUM 149 mmol/L (135-144)
[2018-02-23 06:04] LABS: POTASSIUM 3.8 mmol/L (3.5-5.1)
[2018-02-23 06:05] LABS: ANION GAP 2 (5-13)
[2018-02-23 08:12] LABS: ANISOCYTOSIS 1+ (0-0); BAND NEUTROPHILS #M 0.3 10^3/ul (0.0-0.6); BAND NEUTROPHILS % (M) 2 % (0-4); EOSINOPHILS % (M) 2 % (0-7); GIANT THROMBO% (M) 6 % (0-0); LYMPHOCYTES #M 1.5 10^3/ul (0.8-2.9); LYMPHOCYTES % (M) 8 % (15-51); MICROCYTOSIS 1+ (0-0); MONOCYTE #M 0.1 10^3/ul (0.3-0.9); MONOCYTES % (M) 1 % (0-11); PLATELET ESTIMATE DECREASED; POIKILOCYTOSIS 1+ (0-0); POLYCHROMASIA 2+ (0-0); SEG NEUT #M 16.9 10^3/ul (1.6-7.5); SEGMENTED NEUTROPHILS (M) % 87 % (39-77); SMUDGE%M 7 % (0-0)
[2018-02-23] MEDS: COLLAGENASE 5 GM (UD JAR) TOP (08:32)
[2018-02-23] MEDS: MUPIROCIN 2% 22 GM OINT TOP ×2 (08:32→20:06)
[2018-02-23] MEDS: DEXTROSE 5% 1,000 ML IV (10:00)
[2018-02-23] MEDS: VANCOMYCIN 750 MG in DEXTROSE 5% 150 ML IVPB (13:17)
[2018-02-24] MEDS ORDERED: VITAMIN A & D 5 GM OINT PACKET TOP (02:10)
[2018-02-24 05:59] LABS: ADD MAN DIFF? NO
[2018-02-24] MEDS: MEROPENEM 500MG/50 ML (PMX) 50 ML IVPB ×2 (06:26→17:47)
[2018-02-24] MEDS: MIDODRINE 5 MG TAB PO ×3 (06:26→21:29)
[2018-02-24] MEDS: PANTOPRAZOLE 40 MG INJ IV ×2 (06:26→17:47)
[2018-02-24 06:42] LABS: ANION GAP 1 (5-13); BLOOD UREA NITROGEN 35 mg/dl (7-20); CALCIUM 7.1 mg/dl (8.4-10.2); CARBON DIOXIDE 26 mmol/L (21-31); CHLORIDE 119 mmol/L (97-110); CREATININE 0.93 mg/dl (0.61-1.24); GLUCOSE 119 mg/dl (70-220); SODIUM 146 mmol/L (135-144)
[2018-02-24 06:55] LABS: POTASSIUM 3.8 mmol/L (3.5-5.1)
[2018-02-24 07:36] LABS: ABNORMAL IP MESSAGE 1; BASOPHILS % 0.2 % (0.0-2.0); EOSINOPHILS # 0.3 10^3/ul (0.0-0.5); EOSINOPHILS % 1.6 % (0.0-7.0); HEMATOCRIT 30.3 % (42.0-52.0); HEMOGLOBIN 9.4 g/dl (14.0-18.0); LYMPHOCYTES # 1.7 10^3/ul (0.8-2.9); LYMPHOCYTES % 10.1 % (15.0-51.0); MEAN CORPUSCULAR HEMOGLOBIN 28.4 pg (29.0-33.0); MEAN CORPUSCULAR VOLUME 91.5 fl (82.0-101.0); MEAN PLATELET VOLUME 13.7 fl (7.4-10.4); MONOCYTE # 0.8 10^3/ul (0.3-0.9); MONOCYTES % 4.8 % (0.0-11.0); NEUTROPHILS % 82.4 % (39.0-77.0); PLATELET COUNT 95 10^3/UL (140-415); POSITIVE DIFF @See below; RED BLOOD COUNT 3.31 10^6/ul (4.70-6.10)
[2018-02-24] MEDS: COLLAGENASE 5 GM (UD JAR) TOP (09:06)
[2018-02-24] MEDS: MUPIROCIN 2% 22 GM OINT TOP ×2 (09:06→21:33)
[2018-02-24] MEDS: DEXTROSE 5% 1,000 ML IV (12:34)
[2018-02-24 14:23] LABS: VANCOMYCIN,TROUGH 10.6 ug/ml (10.0-20.0)
[2018-02-24] MEDS: VANCOMYCIN 750 MG in DEXTROSE 5% 150 ML IVPB (14:45)
[2018-02-24] MEDS: FLUCONAZOLE 100 MG TAB PO (15:29)
[2018-02-25] MEDS: PANTOPRAZOLE 40 MG INJ IV ×2 (05:55→18:42)
[2018-02-25] MEDS: MEROPENEM 500MG/50 ML (PMX) 50 ML IVPB (05:55)
[2018-02-25 07:46] LABS: ADD MAN DIFF? NO
[2018-02-25 07:50] LABS: ABNORMAL IP MESSAGE 1; BASOPHILS % 0.1 % (0.0-2.0); EOSINOPHILS # 0.3 10^3/ul (0.0-0.5); EOSINOPHILS % 1.6 % (0.0-7.0); HEMATOCRIT 30.4 % (42.0-52.0); HEMOGLOBIN 9.3 g/dl (14.0-18.0); LYMPHOCYTES # 1.8 10^3/ul (0.8-2.9); LYMPHOCYTES % 11.9 % (15.0-51.0); MEAN CORPUSCULAR HEMOGLOBIN 28.3 pg (29.0-33.0); MEAN CORPUSCULAR HGB CONC 30.6 g/dl (32.0-37.0); MEAN CORPUSCULAR VOLUME 92.4 fl (82.0-101.0); MEAN PLATELET VOLUME 13.8 fl (7.4-10.4); MONOCYTE # 0.8 10^3/ul (0.3-0.9); NEUTROPHIL # 12.5 10^3/ul (1.6-7.5); NEUTROPHILS % 80.8 % (39.0-77.0); PLATELET COUNT 163 10^3/UL (140-415); POSITIVE DIFF @See below; RED BLOOD COUNT 3.29 10^6/ul (4.70-6.10); RED CELL DISTRIBUTION WIDTH 16.8 % (11.5-14.5)
[2018-02-25 07:50] LABS: WHITE BLOOD COUNT 15.5 10^3/ul (4.8-10.8)
[2018-02-25 08:18] LABS: ANION GAP 2 (5-13); BLOOD UREA NITROGEN 30 mg/dl (7-20); CALCIUM 7.5 mg/dl (8.4-10.2); CARBON DIOXIDE 28 mmol/L (21-31); CHLORIDE 115 mmol/L (97-110); GLUCOSE 109 mg/dl (70-220); POTASSIUM 4.3 mmol/L (3.5-5.1); SODIUM 145 mmol/L (135-144)
[2018-02-25] MEDS: DEXTROSE 5% 1,000 ML IV (08:30)
[2018-02-25] MEDS: COLLAGENASE 5 GM (UD JAR) TOP (09:15)
[2018-02-25] MEDS: FLUCONAZOLE 100 MG TAB PO (09:16)
[2018-02-25] MEDS: MUPIROCIN 2% 22 GM OINT TOP ×2 (09:16→21:06)
[2018-02-25] MEDS: MIDODRINE 5 MG TAB PO ×2 (09:51→21:06)
[2018-02-26] MEDS: DEXTROSE 5% 1,000 ML IV (04:28)
[2018-02-26] MEDS: PANTOPRAZOLE 40 MG INJ IV ×2 (06:41→17:47)
[2018-02-26 06:58] LABS: ADD MAN DIFF? NO
[2018-02-26 07:03] LABS: WHITE BLOOD COUNT 15.4 10^3/ul (4.8-10.8)
[2018-02-26 07:03] LABS: ABNORMAL IP MESSAGE 1; BASOPHILS % 0.2 % (0.0-2.0); EOSINOPHILS # 0.1 10^3/ul (0.0-0.5); EOSINOPHILS % 0.7 % (0.0-7.0); HEMATOCRIT 29.1 % (42.0-52.0); HEMOGLOBIN 9.1 g/dl (14.0-18.0); LYMPHOCYTES # 1.6 10^3/ul (0.8-2.9); LYMPHOCYTES % 10.1 % (15.0-51.0); MEAN CORPUSCULAR HEMOGLOBIN 28.3 pg (29.0-33.0); MEAN CORPUSCULAR HGB CONC 31.3 g/dl (32.0-37.0); MEAN CORPUSCULAR VOLUME 90.4 fl (82.0-101.0); MEAN PLATELET VOLUME 13.6 fl (7.4-10.4); MONOCYTE # 0.6 10^3/ul (0.3-0.9); MONOCYTES % 3.9 % (0.0-11.0); NEUTROPHILS % 84.4 % (39.0-77.0); PLATELET COUNT 183 10^3/UL (140-415); POSITIVE DIFF @See below; RED BLOOD COUNT 3.22 10^6/ul (4.70-6.10); RED CELL DISTRIBUTION WIDTH 16.5 % (11.5-14.5)
[2018-02-26 07:31] LABS: ANION GAP 1 (5-13); BLOOD UREA NITROGEN 25 mg/dl (7-20); CALCIUM 7.3 mg/dl (8.4-10.2); CARBON DIOXIDE 27 mmol/L (21-31); CHLORIDE 113 mmol/L (97-110); CREATININE 0.85 mg/dl (0.61-1.24); GLUCOSE 118 mg/dl (70-220); POTASSIUM 3.4 mmol/L (3.5-5.1); SODIUM 141 mmol/L (135-144)
[2018-02-26] MEDS: FLUCONAZOLE 100 MG TAB PO (09:05)
[2018-02-26] MEDS: MUPIROCIN 2% 22 GM OINT TOP ×2 (09:05→20:07)
[2018-02-26] MEDS: VORICONAZOLE 200 MG TAB PO ×2 (13:58→20:06)
[2018-02-26] MEDS: MIDODRINE 5 MG TAB PO ×2 (13:58→20:06)
[2018-02-26] MEDS: COLLAGENASE 5 GM (UD JAR) TOP (13:58)
[2018-02-26] MEDS: POTASSIUM CHLORIDE 100 ML IVPB (13:58)
[2018-02-26] MEDS: ASCORBIC ACID 500 MG TAB NGT (15:21)
[2018-02-26] MEDS: ACETAMINOPHEN 325 MG TAB PO (20:05)
[2018-02-27] MEDS: DEXTROSE 5% 1,000 ML IV (00:38)
[2018-02-27] MEDS: PANTOPRAZOLE 40 MG INJ IV ×2 (05:23→17:27)
[2018-02-27 06:01] LABS: ADD MAN DIFF? NO
[2018-02-27 06:05] LABS: ABNORMAL IP MESSAGE 1; BASOPHIL # 0.1 10^3/ul (0.0-0.1); BASOPHILS % 0.3 % (0.0-2.0); EOSINOPHILS # 0.1 10^3/ul (0.0-0.5); EOSINOPHILS % 0.3 % (0.0-7.0); HEMATOCRIT 28.7 % (42.0-52.0); LYMPHOCYTES # 1.6 10^3/ul (0.8-2.9); LYMPHOCYTES % 7.3 % (15.0-51.0); MEAN CORPUSCULAR HEMOGLOBIN 28.4 pg (29.0-33.0); MEAN CORPUSCULAR HGB CONC 31.4 g/dl (32.0-37.0); MEAN CORPUSCULAR VOLUME 90.5 fl (82.0-101.0); MEAN PLATELET VOLUME 13.7 fl (7.4-10.4); MONOCYTES % 4.3 % (0.0-11.0); NEUTROPHIL # 19.3 10^3/ul (1.6-7.5); NEUTROPHILS % 87.1 % (39.0-77.0); PLATELET COUNT 183 10^3/UL (140-415); POSITIVE DIFF @See below; RED BLOOD COUNT 3.17 10^6/ul (4.70-6.10); RED CELL DISTRIBUTION WIDTH 16.5 % (11.5-14.5)
[2018-02-27 06:05] LABS: WHITE BLOOD COUNT 22.1 10^3/ul (4.8-10.8)
[2018-02-27 06:31] LABS: ANION GAP 8 (5-13); BLOOD UREA NITROGEN 24 mg/dl (7-20); CALCIUM 7.2 mg/dl (8.4-10.2); CARBON DIOXIDE 25 mmol/L (21-31); CHLORIDE 108 mmol/L (97-110); CREATININE 0.81 mg/dl (0.61-1.24); GLUCOSE 109 mg/dl (70-220); POTASSIUM 3.8 mmol/L (3.5-5.1); SODIUM 141 mmol/L (135-144)
[2018-02-27] MEDS: MUPIROCIN 2% 22 GM OINT TOP ×2 (08:48→20:42)
[2018-02-27] MEDS: ASCORBIC ACID 500 MG TAB NGT (08:48)
[2018-02-27] MEDS: VORICONAZOLE 200 MG TAB PO ×2 (08:48→20:42)
[2018-02-27] MEDS: ZINC SULFATE 220 MG CAP NGT (08:48)
[2018-02-27] MEDS: MIDODRINE 5 MG TAB PO (08:48)
[2018-02-27] MEDS: COLLAGENASE 5 GM (UD JAR) TOP (08:49)
[2018-02-27] MEDS: ACETAMINOPHEN 325 MG TAB PO (17:27)
[2018-02-27] MEDS: BALSAM PERU/CASTOR OIL 60 GM TUBE TOP (20:43)
[2018-02-27] MEDS: MIDODRINE 2.5 MG TAB PO (23:00)
[2018-02-28] MEDS: PANTOPRAZOLE 40 MG INJ IV ×2 (05:44→17:56)
[2018-02-28] MEDS ORDERED: MIDODRINE 2.5 MG TAB PO (09:00)
[2018-02-28] MEDS: ZINC SULFATE 220 MG CAP NGT (09:11)
[2018-02-28] MEDS: COLLAGENASE 5 GM (UD JAR) TOP (09:11)
[2018-02-28] MEDS: ASCORBIC ACID 500 MG TAB NGT (09:11)
[2018-02-28] MEDS: VORICONAZOLE 200 MG TAB PO ×2 (09:11→22:51)
[2018-02-28] MEDS: BALSAM PERU/CASTOR OIL 60 GM TUBE TOP ×2 (09:11→22:51)
[2018-02-28] MEDS: MIDODRINE 2.5 MG TAB PO (09:11)
[2018-02-28] MEDS: MUPIROCIN 2% 22 GM OINT TOP ×2 (09:12→22:51)
[2018-03-01] MEDS: MIDODRINE 2.5 MG TAB PO ×3 (00:25→20:25)
[2018-03-01] MEDS: PANTOPRAZOLE 40 MG INJ IV ×2 (06:10→17:22)
[2018-03-01] MEDS: ZINC SULFATE 220 MG CAP NGT (09:16)
[2018-03-01] MEDS: VORICONAZOLE 200 MG TAB PO ×2 (09:16→20:24)
[2018-03-01] MEDS: ASCORBIC ACID 500 MG TAB NGT (09:16)
[2018-03-01] MEDS: BALSAM PERU/CASTOR OIL 60 GM TUBE TOP ×2 (09:19→20:25)
[2018-03-01] MEDS: MUPIROCIN 2% 22 GM OINT TOP ×2 (09:19→20:26)
[2018-03-01] MEDS: COLLAGENASE 5 GM (UD JAR) TOP (09:19)
[2018-03-01 16:32] LABS: ADD MAN DIFF? NO
[2018-03-01 16:38] LABS: ABNORMAL IP MESSAGE 1; BASOPHIL # 0.1 10^3/ul (0.0-0.1); BASOPHILS % 0.5 % (0.0-2.0); EOSINOPHILS % 0.1 % (0.0-7.0); HEMATOCRIT 29.9 % (42.0-52.0); HEMOGLOBIN 9.2 g/dl (14.0-18.0); LYMPHOCYTES # 1.6 10^3/ul (0.8-2.9); LYMPHOCYTES % 15.3 % (15.0-51.0); MEAN CORPUSCULAR HEMOGLOBIN 27.9 pg (29.0-33.0); MEAN CORPUSCULAR HGB CONC 30.8 g/dl (32.0-37.0); MEAN CORPUSCULAR VOLUME 90.6 fl (82.0-101.0); MEAN PLATELET VOLUME 13.2 fl (7.4-10.4); MONOCYTE # 0.6 10^3/ul (0.3-0.9); MONOCYTES % 5.8 % (0.0-11.0); NEUTROPHILS % 77.9 % (39.0-77.0); PLATELET COUNT 239 10^3/UL (140-415); POSITIVE DIFF @See below; RED CELL DISTRIBUTION WIDTH 16.6 % (11.5-14.5)
[2018-03-01 16:38] LABS: WHITE BLOOD COUNT 10.3 10^3/ul (4.8-10.8)
[2018-03-01 16:56] LABS: ANION GAP 4 (5-13); BLOOD UREA NITROGEN 25 mg/dl (7-20); CALCIUM 7.9 mg/dl (8.4-10.2); CARBON DIOXIDE 25 mmol/L (21-31); CHLORIDE 110 mmol/L (97-110); CREATININE 0.84 mg/dl (0.61-1.24); GLUCOSE 87 mg/dl (70-220); SODIUM 139 mmol/L (135-144)
[2018-03-02] MEDS: PANTOPRAZOLE 40 MG INJ IV ×2 (05:33→17:15)
[2018-03-02 06:19] LABS: ADD MAN DIFF? NO
[2018-03-02 06:26] LABS: BASOPHILS % 0.5 % (0.0-2.0); EOSINOPHILS # 0.1 10^3/ul (0.0-0.5); EOSINOPHILS % 1.7 % (0.0-7.0); HEMOGLOBIN 7.8 g/dl (14.0-18.0); LYMPHOCYTES # 1.4 10^3/ul (0.8-2.9); LYMPHOCYTES % 16.5 % (15.0-51.0); MEAN CORPUSCULAR HEMOGLOBIN 28.9 pg (29.0-33.0); MEAN CORPUSCULAR HGB CONC 32.5 g/dl (32.0-37.0); MEAN CORPUSCULAR VOLUME 88.9 fl (82.0-101.0); MEAN PLATELET VOLUME 12.9 fl (7.4-10.4); MONOCYTE # 0.7 10^3/ul (0.3-0.9); MONOCYTES % 8.2 % (0.0-11.0); NEUTROPHILS % 72.6 % (39.0-77.0); PLATELET COUNT 256 10^3/UL (140-415); RED CELL DISTRIBUTION WIDTH 16.4 % (11.5-14.5)
[2018-03-02 06:26] LABS: WHITE BLOOD COUNT 8.2 10^3/ul (4.8-10.8)
[2018-03-02 07:12] LABS: ANION GAP 6 (5-13); BLOOD UREA NITROGEN 24 mg/dl (7-20); CALCIUM 7.5 mg/dl (8.4-10.2); CARBON DIOXIDE 27 mmol/L (21-31); CHLORIDE 110 mmol/L (97-110); GLUCOSE 99 mg/dl (70-220); POTASSIUM 3.9 mmol/L (3.5-5.1); SODIUM 143 mmol/L (135-144)
[2018-03-02] MEDS: MIDODRINE 2.5 MG TAB PO ×2 (08:20→20:48)
[2018-03-02] MEDS: ASCORBIC ACID 500 MG TAB NGT (08:20)
[2018-03-02] MEDS: ZINC SULFATE 220 MG CAP NGT (08:20)
[2018-03-02] MEDS: VORICONAZOLE 200 MG TAB PO ×2 (08:20→20:47)
[2018-03-02] MEDS: BALSAM PERU/CASTOR OIL 60 GM TUBE TOP ×2 (08:21→20:57)
[2018-03-02] MEDS: MUPIROCIN 2% 22 GM OINT TOP ×2 (08:21→20:56)
[2018-03-02] MEDS: COLLAGENASE 5 GM (UD JAR) TOP (10:22)
[2018-03-03] MEDS: PANTOPRAZOLE 40 MG INJ IV (05:14)
[2018-03-03 06:21] LABS: ADD MAN DIFF? NO
[2018-03-03 06:32] LABS: BASOPHIL # 0.1 10^3/ul (0.0-0.1); BASOPHILS % 0.6 % (0.0-2.0); EOSINOPHILS # 0.2 10^3/ul (0.0-0.5); EOSINOPHILS % 1.8 % (0.0-7.0); HEMATOCRIT 25.6 % (42.0-52.0); HEMOGLOBIN 7.9 g/dl (14.0-18.0); LYMPHOCYTES # 1.4 10^3/ul (0.8-2.9); LYMPHOCYTES % 15.9 % (15.0-51.0); MEAN CORPUSCULAR HEMOGLOBIN 27.8 pg (29.0-33.0); MEAN CORPUSCULAR HGB CONC 30.9 g/dl (32.0-37.0); MEAN CORPUSCULAR VOLUME 90.1 fl (82.0-101.0); MEAN PLATELET VOLUME 12.4 fl (7.4-10.4); MONOCYTE # 0.7 10^3/ul (0.3-0.9); MONOCYTES % 7.8 % (0.0-11.0); NEUTROPHIL # 6.5 10^3/ul (1.6-7.5); NEUTROPHILS % 73.3 % (39.0-77.0); PLATELET COUNT 269 10^3/UL (140-415); RED BLOOD COUNT 2.84 10^6/ul (4.70-6.10); RED CELL DISTRIBUTION WIDTH 16.6 % (11.5-14.5)
[2018-03-03 06:32] LABS: WHITE BLOOD COUNT 8.9 10^3/ul (4.8-10.8)
[2018-03-03 06:57] LABS: ALANINE AMINOTRANSFERASE 70 IU/L (13-69); ALBUMIN/GLOBULIN RATIO 0.58; ALKALINE PHOSPHATASE 742 IU/L (42-121); ANION GAP 7 (5-13); ASPARTATE AMINO TRANSFERASE 101 IU/L (15-46); BILIRUBIN,INDIRECT 0.1 mg/dl (0-1.1); BILIRUBIN,TOTAL 0.1 mg/dl (0.2-1.3); BLOOD UREA NITROGEN 23 mg/dl (7-20); CALCIUM 7.5 mg/dl (8.4-10.2); CARBON DIOXIDE 29 mmol/L (21-31); CHLORIDE 109 mmol/L (97-110); CREATININE 0.88 mg/dl (0.61-1.24); GLUCOSE 111 mg/dl (70-220); SODIUM 145 mmol/L (135-144); TOTAL PROTEIN 5.4 g/dl (6.1-8.1)
[2018-03-03] MEDS: COLLAGENASE 5 GM (UD JAR) TOP (08:51)
[2018-03-03] MEDS: MIDODRINE 2.5 MG TAB PO ×2 (08:52→21:00)
[2018-03-03] MEDS: BALSAM PERU/CASTOR OIL 60 GM TUBE TOP ×2 (08:52→21:46)
[2018-03-03] MEDS: ASCORBIC ACID 500 MG TAB NGT (08:52)
[2018-03-03] MEDS: VORICONAZOLE 200 MG TAB PO ×2 (08:52→21:47)
[2018-03-03] MEDS: ZINC SULFATE 220 MG CAP NGT (08:52)
[2018-03-03] MEDS: MUPIROCIN 2% 22 GM OINT TOP ×2 (08:53→21:46)
[2018-03-03] MEDS: LANSOPRAZOLE 30 MG CAP PO (18:24)
[2018-03-04 06:53] LABS: ADD MAN DIFF? NO
[2018-03-04] MEDS: LANSOPRAZOLE 30 MG CAP PO ×2 (06:53→17:40)
[2018-03-04 06:58] LABS: WHITE BLOOD COUNT 6.9 10^3/ul (4.8-10.8)
[2018-03-04 06:58] LABS: BASOPHILS % 0.4 % (0.0-2.0); EOSINOPHILS # 0.2 10^3/ul (0.0-0.5); EOSINOPHILS % 2.4 % (0.0-7.0); HEMATOCRIT 24.1 % (42.0-52.0); HEMOGLOBIN 7.7 g/dl (14.0-18.0); LYMPHOCYTES # 1.5 10^3/ul (0.8-2.9); LYMPHOCYTES % 20.9 % (15.0-51.0); MEAN CORPUSCULAR HEMOGLOBIN 28.3 pg (29.0-33.0); MEAN CORPUSCULAR VOLUME 88.6 fl (82.0-101.0); MEAN PLATELET VOLUME 12.2 fl (7.4-10.4); MONOCYTE # 0.7 10^3/ul (0.3-0.9); MONOCYTES % 9.9 % (0.0-11.0); NEUTROPHIL # 4.6 10^3/ul (1.6-7.5); NEUTROPHILS % 65.7 % (39.0-77.0); PLATELET COUNT 307 10^3/UL (140-415); RED BLOOD COUNT 2.72 10^6/ul (4.70-6.10)
[2018-03-04 07:22] LABS: ANION GAP 5 (5-13); BLOOD UREA NITROGEN 25 mg/dl (7-20); CALCIUM 7.4 mg/dl (8.4-10.2); CARBON DIOXIDE 29 mmol/L (21-31); CHLORIDE 109 mmol/L (97-110); CREATININE 0.82 mg/dl (0.61-1.24); GLUCOSE 104 mg/dl (70-220); POTASSIUM 3.9 mmol/L (3.5-5.1); SODIUM 143 mmol/L (135-144)
[2018-03-04 08:26] LABS: HAAIG REFLEX REFLEX FILED
[2018-03-04 09:16] LABS: HEPATITIS B SURFACE ANTIGEN NEGATIVE (NEGATIVE)
[2018-03-04] MEDS: VORICONAZOLE 200 MG TAB PO (09:28)
[2018-03-04] MEDS: ASCORBIC ACID 500 MG TAB NGT (09:30)
[2018-03-04] MEDS: MIDODRINE 2.5 MG TAB PO (09:30)
[2018-03-04] MEDS: ZINC SULFATE 220 MG CAP NGT (09:30)
[2018-03-04 09:34] LABS: HEPATITIS B CORE ANTIBODY NEGATIVE (NEGATIVE); HEPATITIS C VIRAL ANTIBODY NEGATIVE (NEGATIVE)
[2018-03-04] MEDS: MUPIROCIN 2% 22 GM OINT TOP ×2 (10:02→21:56)
[2018-03-04] MEDS: BALSAM PERU/CASTOR OIL 60 GM TUBE TOP ×2 (10:02→21:56)
[2018-03-04] MEDS: COLLAGENASE 5 GM (UD JAR) TOP (10:08)
[2018-03-05 03:35] LABS: OCCULT BLOOD STOOL NEGATIVE (NEGATIVE)
[2018-03-05] MEDS: LANSOPRAZOLE 30 MG CAP PO ×2 (05:27→17:49)
[2018-03-05 05:57] LABS: ADD MAN DIFF? NO
[2018-03-05 06:00] LABS: BASOPHIL # 0.1 10^3/ul (0.0-0.1); BASOPHILS % 0.8 % (0.0-2.0); EOSINOPHILS # 0.2 10^3/ul (0.0-0.5); HEMATOCRIT 25.8 % (42.0-52.0); LYMPHOCYTES # 1.5 10^3/ul (0.8-2.9); LYMPHOCYTES % 25.5 % (15.0-51.0); MEAN CORPUSCULAR HEMOGLOBIN 27.8 pg (29.0-33.0); MEAN CORPUSCULAR VOLUME 89.6 fl (82.0-101.0); MEAN PLATELET VOLUME 11.9 fl (7.4-10.4); MONOCYTE # 0.7 10^3/ul (0.3-0.9); MONOCYTES % 11.6 % (0.0-11.0); NEUTROPHIL # 3.5 10^3/ul (1.6-7.5); NEUTROPHILS % 57.4 % (39.0-77.0); PLATELET COUNT 341 10^3/UL (140-415); RED BLOOD COUNT 2.88 10^6/ul (4.70-6.10); RED CELL DISTRIBUTION WIDTH 16.7 % (11.5-14.5)
[2018-03-05 06:58] LABS: ALANINE AMINOTRANSFERASE 63 IU/L (13-69); ALBUMIN/GLOBULIN RATIO 0.55; ALKALINE PHOSPHATASE 672 IU/L (42-121); ANION GAP 8 (5-13); ASPARTATE AMINO TRANSFERASE 73 IU/L (15-46); BILIRUBIN,INDIRECT 0.1 mg/dl (0-1.1); BILIRUBIN,TOTAL 0.1 mg/dl (0.2-1.3); BLOOD UREA NITROGEN 25 mg/dl (7-20); CALCIUM 7.4 mg/dl (8.4-10.2); CARBON DIOXIDE 25 mmol/L (21-31); CHLORIDE 108 mmol/L (97-110); GLUCOSE 94 mg/dl (70-220); POTASSIUM 4.3 mmol/L (3.5-5.1); SODIUM 141 mmol/L (135-144); TOTAL PROTEIN 5.6 g/dl (6.1-8.1)
[2018-03-05] MEDS: BALSAM PERU/CASTOR OIL 60 GM TUBE TOP ×3 (07:54→22:00)
[2018-03-05] MEDS: COLLAGENASE 5 GM (UD JAR) TOP ×2 (07:55→08:19)
[2018-03-05] MEDS: ZINC SULFATE 220 MG CAP NGT (08:19)
[2018-03-05] MEDS: ASCORBIC ACID 500 MG TAB NGT (08:19)
[2018-03-05] MEDS: MUPIROCIN 2% 22 GM OINT TOP ×2 (08:19→22:00)
[2018-03-05 12:12] LABS: AMMONIA 14 umol/l (9-30)
[2018-03-05] MEDS: MULTIVITAMINS 30 ML CUP NGT (17:49)
[2018-03-06] MEDS: LANSOPRAZOLE 30 MG CAP PO ×2 (05:51→17:10)
[2018-03-06 06:12] LABS: ADD MAN DIFF? NO
[2018-03-06 06:20] LABS: WHITE BLOOD COUNT 6.3 10^3/ul (4.8-10.8)
[2018-03-06 06:20] LABS: BASOPHILS % 0.6 % (0.0-2.0); EOSINOPHILS # 0.3 10^3/ul (0.0-0.5); EOSINOPHILS % 5.2 % (0.0-7.0); HEMATOCRIT 25.4 % (42.0-52.0); HEMOGLOBIN 7.9 g/dl (14.0-18.0); LYMPHOCYTES # 1.6 10^3/ul (0.8-2.9); LYMPHOCYTES % 25.7 % (15.0-51.0); MEAN CORPUSCULAR HEMOGLOBIN 27.7 pg (29.0-33.0); MEAN CORPUSCULAR HGB CONC 31.1 g/dl (32.0-37.0); MEAN CORPUSCULAR VOLUME 89.1 fl (82.0-101.0); MEAN PLATELET VOLUME 11.6 fl (7.4-10.4); MONOCYTE # 0.7 10^3/ul (0.3-0.9); MONOCYTES % 11.3 % (0.0-11.0); NEUTROPHIL # 3.6 10^3/ul (1.6-7.5); NEUTROPHILS % 56.4 % (39.0-77.0); PLATELET COUNT 411 10^3/UL (140-415); POSITIVE DIFF @See below; RED BLOOD COUNT 2.85 10^6/ul (4.70-6.10); RED CELL DISTRIBUTION WIDTH 16.6 % (11.5-14.5)
[2018-03-06 06:50] LABS: ANION GAP 4 (5-13); BLOOD UREA NITROGEN 23 mg/dl (7-20); CALCIUM 7.7 mg/dl (8.4-10.2); CARBON DIOXIDE 26 mmol/L (21-31); CHLORIDE 107 mmol/L (97-110); CREATININE 0.79 mg/dl (0.61-1.24); GLUCOSE 117 mg/dl (70-220); SODIUM 137 mmol/L (135-144)
[2018-03-06 07:36] LABS: ANISOCYTOSIS 1+ (0-0); BAND NEUTROPHILS % (M) 17 % (0-4); EOSINOPHILS % (M) 7 % (0-7); GIANT THROMBO% (M) 1 % (0-0); HYPOCHROMASIA 1+ (0-0); LYMPHOCYTES #M 1.5 10^3/ul (0.8-2.9); LYMPHOCYTES % (M) 24 % (15-51); MONOCYTE #M 0.6 10^3/ul (0.3-0.9); MONOCYTES % (M) 10 % (0-11); MYELOCYTES #M 0.1 10^3/ul (0.0-0.0); MYELOCYTES % (M) 2 % (0-0); PLATELET ESTIMATE NORMAL; POLYCHROMASIA 2+ (0-0); REACTIVE LYMPHOCYTES% (M) 1 % (0-0); SEG NEUT #M 2.5 10^3/ul (1.6-7.5); SEGMENTED NEUTROPHILS (M) % 39 % (39-77); SMUDGE%M 12 % (0-0)
[2018-03-06 08:57] LABS: ALPHA 1 ANTITRYPSIN 137 mg/dL (83-199)
[2018-03-06] MEDS: MULTIVITAMINS 30 ML CUP NGT (09:14)
[2018-03-06] MEDS: ASCORBIC ACID 500 MG TAB NGT (09:14)
[2018-03-06] MEDS: ZINC SULFATE 220 MG CAP NGT (09:14)
[2018-03-06] MEDS: COLLAGENASE 5 GM (UD JAR) TOP (09:14)
[2018-03-06] MEDS: MUPIROCIN 2% 22 GM OINT TOP ×2 (09:15→20:32)
[2018-03-06] MEDS: BALSAM PERU/CASTOR OIL 60 GM TUBE TOP ×2 (09:15→20:32)
[2018-03-06 13:31] LABS: ANA SCREEN NEGATIVE (NEGATIVE)
[2018-03-06 20:28] LABS: MITOCHONDRIAL TB NEGATIVE (NEGATIVE); SMOOTH MUSCLE AB SCREEN POSITIVE (NEGATIVE)
[2018-03-06 21:12] LABS: SMOOTH MUSCLE AB TITER 1:40 titer (<1:20)
[2018-03-07] MEDS: LANSOPRAZOLE 30 MG CAP PO ×2 (05:52→18:19)
[2018-03-07 06:27] LABS: ADD MAN DIFF? NO
[2018-03-07 06:33] LABS: BASOPHILS % 0.6 % (0.0-2.0); EOSINOPHILS # 0.4 10^3/ul (0.0-0.5); EOSINOPHILS % 6.1 % (0.0-7.0); HEMATOCRIT 25.7 % (42.0-52.0); LYMPHOCYTES # 1.8 10^3/ul (0.8-2.9); MEAN CORPUSCULAR HEMOGLOBIN 28.3 pg (29.0-33.0); MEAN CORPUSCULAR HGB CONC 31.1 g/dl (32.0-37.0); MEAN CORPUSCULAR VOLUME 90.8 fl (82.0-101.0); MEAN PLATELET VOLUME 11.8 fl (7.4-10.4); MONOCYTE # 0.7 10^3/ul (0.3-0.9); MONOCYTES % 9.9 % (0.0-11.0); NEUTROPHILS % 56.8 % (39.0-77.0); PLATELET COUNT 431 10^3/UL (140-415); POSITIVE DIFF @See below; RED BLOOD COUNT 2.83 10^6/ul (4.70-6.10); RED CELL DISTRIBUTION WIDTH 16.6 % (11.5-14.5)
[2018-03-07 07:12] LABS: ANION GAP 3 (5-13); BLOOD UREA NITROGEN 23 mg/dl (7-20); CALCIUM 7.8 mg/dl (8.4-10.2); CARBON DIOXIDE 30 mmol/L (21-31); CHLORIDE 104 mmol/L (97-110); CREATININE 0.87 mg/dl (0.61-1.24); GLUCOSE 105 mg/dl (70-220); POTASSIUM 4.1 mmol/L (3.5-5.1); SODIUM 137 mmol/L (135-144)
[2018-03-07 07:36] LABS: BAND NEUTROPHILS #M 1.1 10^3/ul (0.0-0.6); BAND NEUTROPHILS % (M) 16 % (0-4); EOSINOPHILS % (M) 9 % (0-7); GIANT THROMBO% (M) 2 % (0-0); HYPOCHROMASIA 1+ (0-0); LYMPHOCYTES #M 1.6 10^3/ul (0.8-2.9); LYMPHOCYTES % (M) 23 % (15-51); METAMYELOCYTES %M 1 % (0-0); MONOCYTE #M 0.2 10^3/ul (0.3-0.9); MONOCYTES % (M) 4 % (0-11); MYELOCYTES % (M) 1 % (0-0); PLATELET ESTIMATE NORMAL; POLYCHROMASIA 1+ (0-0); SEG NEUT #M 3.3 10^3/ul (1.6-7.5); SEGMENTED NEUTROPHILS (M) % 46 % (39-77); SMUDGE%M 13 % (0-0)
[2018-03-07] MEDS: MUPIROCIN 2% 22 GM OINT TOP ×2 (08:02→20:42)
[2018-03-07] MEDS: BALSAM PERU/CASTOR OIL 60 GM TUBE TOP ×2 (08:02→20:42)
[2018-03-07] MEDS: COLLAGENASE 5 GM (UD JAR) TOP (08:02)
[2018-03-07] MEDS: ZINC SULFATE 220 MG CAP NGT (08:52)
[2018-03-07] MEDS: ASCORBIC ACID 500 MG TAB NGT (08:52)
[2018-03-07] MEDS: MULTIVITAMINS 30 ML CUP NGT (08:52)
[2018-03-07 09:33] LABS: ALANINE AMINOTRANSFERASE 60 IU/L (13-69); ALBUMIN 2.1 g/dl (3.3-4.9); ALKALINE PHOSPHATASE 677 IU/L (42-121); ASPARTATE AMINO TRANSFERASE 60 IU/L (15-46); TOTAL PROTEIN 5.4 g/dl (6.1-8.1)
[2018-03-08] MEDS: LANSOPRAZOLE 30 MG CAP PO ×2 (05:37→18:16)
[2018-03-08 07:58] LABS: ADD MAN DIFF? NO
[2018-03-08 08:04] LABS: BASOPHIL # 0.1 10^3/ul (0.0-0.1); BASOPHILS % 0.8 % (0.0-2.0); EOSINOPHILS # 0.5 10^3/ul (0.0-0.5); LYMPHOCYTES # 1.7 10^3/ul (0.8-2.9); LYMPHOCYTES % 22.3 % (15.0-51.0); MEAN CORPUSCULAR HEMOGLOBIN 27.8 pg (29.0-33.0); MEAN CORPUSCULAR HGB CONC 30.8 g/dl (32.0-37.0); MEAN CORPUSCULAR VOLUME 90.3 fl (82.0-101.0); MEAN PLATELET VOLUME 11.9 fl (7.4-10.4); MONOCYTE # 0.7 10^3/ul (0.3-0.9); MONOCYTES % 8.9 % (0.0-11.0); NEUTROPHIL # 4.6 10^3/ul (1.6-7.5); NEUTROPHILS % 59.7 % (39.0-77.0); PLATELET COUNT 477 10^3/UL (140-415); RED BLOOD COUNT 2.88 10^6/ul (4.70-6.10); RED CELL DISTRIBUTION WIDTH 16.6 % (11.5-14.5)
[2018-03-08 08:04] LABS: WHITE BLOOD COUNT 7.8 10^3/ul (4.8-10.8)
[2018-03-08 08:18] LABS: ANION GAP 3 (5-13); BLOOD UREA NITROGEN 23 mg/dl (7-20); CALCIUM 7.7 mg/dl (8.4-10.2); CARBON DIOXIDE 28 mmol/L (21-31); CHLORIDE 104 mmol/L (97-110); CREATININE 0.74 mg/dl (0.61-1.24); GLUCOSE 109 mg/dl (70-220); POTASSIUM 4.1 mmol/L (3.5-5.1); SODIUM 135 mmol/L (135-144)
[2018-03-08] MEDS: MULTIVITAMINS 30 ML CUP NGT (08:54)
[2018-03-08] MEDS: ZINC SULFATE 220 MG CAP NGT (08:54)
[2018-03-08] MEDS: ASCORBIC ACID 500 MG TAB NGT (08:54)
[2018-03-08] MEDS: MUPIROCIN 2% 22 GM OINT TOP ×2 (08:55→20:18)
[2018-03-08] MEDS: BALSAM PERU/CASTOR OIL 60 GM TUBE TOP ×2 (08:56→20:18)
[2018-03-08] MEDS: COLLAGENASE 5 GM (UD JAR) TOP (08:56)
[2018-03-09] MEDS: LANSOPRAZOLE 30 MG CAP PO ×2 (05:33→20:00)
[2018-03-09 06:03] LABS: ADD MAN DIFF? NO
[2018-03-09 06:19] LABS: WHITE BLOOD COUNT 9.1 10^3/ul (4.8-10.8)
[2018-03-09 06:19] LABS: BASOPHIL # 0.1 10^3/ul (0.0-0.1); BASOPHILS % 0.6 % (0.0-2.0); EOSINOPHILS # 0.4 10^3/ul (0.0-0.5); EOSINOPHILS % 4.7 % (0.0-7.0); HEMATOCRIT 26.3 % (42.0-52.0); HEMOGLOBIN 8.1 g/dl (14.0-18.0); LYMPHOCYTES % 22.4 % (15.0-51.0); MEAN CORPUSCULAR HEMOGLOBIN 28.1 pg (29.0-33.0); MEAN CORPUSCULAR HGB CONC 30.8 g/dl (32.0-37.0); MEAN CORPUSCULAR VOLUME 91.3 fl (82.0-101.0); MEAN PLATELET VOLUME 12.8 fl (7.4-10.4); MONOCYTE # 0.8 10^3/ul (0.3-0.9); MONOCYTES % 8.6 % (0.0-11.0); NEUTROPHIL # 5.6 10^3/ul (1.6-7.5); NEUTROPHILS % 61.1 % (39.0-77.0); PLATELET COUNT 309 10^3/UL (140-415); RED BLOOD COUNT 2.88 10^6/ul (4.70-6.10); RED CELL DISTRIBUTION WIDTH 16.6 % (11.5-14.5)
[2018-03-09 06:47] LABS: ANION GAP 3 (5-13); BLOOD UREA NITROGEN 23 mg/dl (7-20); CALCIUM 7.9 mg/dl (8.4-10.2); CARBON DIOXIDE 31 mmol/L (21-31); CHLORIDE 101 mmol/L (97-110); CREATININE 0.73 mg/dl (0.61-1.24); GLUCOSE 116 mg/dl (70-220); POTASSIUM 4.3 mmol/L (3.5-5.1); SODIUM 135 mmol/L (135-144)
[2018-03-09] MEDS: COLLAGENASE 5 GM (UD JAR) TOP (09:29)
[2018-03-09] MEDS: BALSAM PERU/CASTOR OIL 60 GM TUBE TOP ×2 (09:29→20:26)
[2018-03-09] MEDS: MULTIVITAMINS 30 ML CUP NGT (09:30)
[2018-03-09] MEDS: ZINC SULFATE 220 MG CAP NGT (09:30)
[2018-03-09] MEDS: MUPIROCIN 2% 22 GM OINT TOP ×2 (09:30→20:21)
[2018-03-09] MEDS: ASCORBIC ACID 500 MG TAB NGT (09:30)
[2018-03-10] MEDS: LANSOPRAZOLE 30 MG CAP PO ×2 (05:07→17:59)
[2018-03-10 06:12] LABS: ADD MAN DIFF? NO
[2018-03-10 06:14] LABS: BASOPHIL # 0.1 10^3/ul (0.0-0.1); BASOPHILS % 0.6 % (0.0-2.0); EOSINOPHILS # 0.5 10^3/ul (0.0-0.5); HEMATOCRIT 25.5 % (42.0-52.0); HEMOGLOBIN 7.8 g/dl (14.0-18.0); MEAN CORPUSCULAR HEMOGLOBIN 27.9 pg (29.0-33.0); MEAN CORPUSCULAR HGB CONC 30.6 g/dl (32.0-37.0); MEAN CORPUSCULAR VOLUME 91.1 fl (82.0-101.0); MEAN PLATELET VOLUME 11.3 fl (7.4-10.4); MONOCYTE # 0.8 10^3/ul (0.3-0.9); MONOCYTES % 9.2 % (0.0-11.0); NEUTROPHIL # 5.4 10^3/ul (1.6-7.5); NEUTROPHILS % 59.7 % (39.0-77.0); PLATELET COUNT 475 10^3/UL (140-415); RED CELL DISTRIBUTION WIDTH 16.4 % (11.5-14.5)
[2018-03-10 06:48] LABS: ANION GAP 2 (5-13); BLOOD UREA NITROGEN 23 mg/dl (7-20); CALCIUM 7.8 mg/dl (8.4-10.2); CARBON DIOXIDE 32 mmol/L (21-31); CHLORIDE 101 mmol/L (97-110); CREATININE 0.86 mg/dl (0.61-1.24); GLUCOSE 131 mg/dl (70-220); SODIUM 135 mmol/L (135-144)
[2018-03-10 06:49] LABS: ALANINE AMINOTRANSFERASE 49 IU/L (13-69); ALKALINE PHOSPHATASE 424 IU/L (42-121); ASPARTATE AMINO TRANSFERASE 35 IU/L (15-46); TOTAL PROTEIN 5.3 g/dl (6.1-8.1)
[2018-03-10] MEDS: MULTIVITAMINS 30 ML CUP NGT (08:59)
[2018-03-10] MEDS: ASCORBIC ACID 500 MG TAB NGT (08:59)
[2018-03-10] MEDS: MUPIROCIN 2% 22 GM OINT TOP ×2 (08:59→21:08)
[2018-03-10] MEDS: ZINC SULFATE 220 MG CAP NGT (08:59)
[2018-03-10] MEDS: BALSAM PERU/CASTOR OIL 60 GM TUBE TOP ×2 (09:00→21:09)
[2018-03-10] MEDS: COLLAGENASE 5 GM (UD JAR) TOP (09:00)
[2018-03-11] MEDS: LANSOPRAZOLE 30 MG CAP PO ×2 (06:03→18:19)
[2018-03-11] MEDS: MULTIVITAMINS 30 ML CUP NGT (08:26)
[2018-03-11] MEDS: ZINC SULFATE 220 MG CAP NGT (08:26)
[2018-03-11] MEDS: MUPIROCIN 2% 22 GM OINT TOP ×2 (08:26→20:36)
[2018-03-11] MEDS: ASCORBIC ACID 500 MG TAB NGT (08:26)
[2018-03-11] MEDS: COLLAGENASE 5 GM (UD JAR) TOP (08:27)
[2018-03-11] MEDS: BALSAM PERU/CASTOR OIL 60 GM TUBE TOP ×2 (08:27→20:37)
[2018-03-12] MEDS: LANSOPRAZOLE 30 MG CAP PO ×2 (05:32→18:22)
[2018-03-12] MEDS: ZINC SULFATE 220 MG CAP NGT (09:10)
[2018-03-12] MEDS: ASCORBIC ACID 500 MG TAB NGT (09:10)
[2018-03-12] MEDS: MUPIROCIN 2% 22 GM OINT TOP ×2 (09:10→21:14)
[2018-03-12] MEDS: COLLAGENASE 5 GM (UD JAR) TOP (09:10)
[2018-03-12] MEDS: MULTIVITAMINS 30 ML CUP NGT (09:10)
[2018-03-12] MEDS: BALSAM PERU/CASTOR OIL 60 GM TUBE TOP ×2 (09:11→21:14)
[2018-03-13] MEDS: LANSOPRAZOLE 30 MG CAP PO ×2 (05:34→17:05)
[2018-03-13] MEDS: COLLAGENASE 5 GM (UD JAR) TOP (08:30)
[2018-03-13] MEDS: MUPIROCIN 2% 22 GM OINT TOP ×2 (08:30→21:17)
[2018-03-13] MEDS: BALSAM PERU/CASTOR OIL 60 GM TUBE TOP ×2 (08:30→21:17)
[2018-03-13] MEDS: MULTIVITAMINS 30 ML CUP NGT (08:30)
[2018-03-13] MEDS: ASCORBIC ACID 500 MG TAB NGT (08:30)
[2018-03-13] MEDS: ZINC SULFATE 220 MG CAP NGT (08:30)
[2018-03-14] MEDS: LANSOPRAZOLE 30 MG CAP PO ×2 (06:46→18:11)
[2018-03-14] MEDS: COLLAGENASE 5 GM (UD JAR) TOP (08:24)
[2018-03-14] MEDS: MUPIROCIN 2% 22 GM OINT TOP ×2 (08:24→22:21)
[2018-03-14] MEDS: ZINC SULFATE 220 MG CAP NGT (08:24)
[2018-03-14] MEDS: MULTIVITAMINS 30 ML CUP NGT (08:24)
[2018-03-14] MEDS: BALSAM PERU/CASTOR OIL 60 GM TUBE TOP ×2 (08:24→22:21)
[2018-03-14] MEDS: ASCORBIC ACID 500 MG TAB NGT (08:24)
[2018-03-15] MEDS: LANSOPRAZOLE 30 MG CAP PO ×2 (05:56→18:46)
[2018-03-15] MEDS: MULTIVITAMINS 30 ML CUP NGT (09:46)
[2018-03-15] MEDS: COLLAGENASE 5 GM (UD JAR) TOP (09:47)
[2018-03-15] MEDS: MUPIROCIN 2% 22 GM OINT TOP ×2 (09:47→20:08)
[2018-03-15] MEDS: ZINC SULFATE 220 MG CAP NGT (09:47)
[2018-03-15] MEDS: ASCORBIC ACID 500 MG TAB NGT (09:47)
[2018-03-15] MEDS: BALSAM PERU/CASTOR OIL 60 GM TUBE TOP ×2 (09:48→21:00)
[2018-03-16] MEDS: LANSOPRAZOLE 30 MG CAP PO ×2 (05:55→18:23)
[2018-03-16 09:04] LABS: ADD MAN DIFF? NO
[2018-03-16] MEDS: ASCORBIC ACID 500 MG TAB NGT (09:05)
[2018-03-16] MEDS: MULTIVITAMINS 30 ML CUP NGT (09:05)
[2018-03-16] MEDS: ZINC SULFATE 220 MG CAP NGT (09:05)
[2018-03-16 09:06] LABS: BASOPHIL # 0.1 10^3/ul (0.0-0.1); BASOPHILS % 0.3 % (0.0-2.0); EOSINOPHILS # 0.1 10^3/ul (0.0-0.5); EOSINOPHILS % 0.2 % (0.0-7.0); HEMATOCRIT 28.8 % (42.0-52.0); HEMOGLOBIN 8.9 g/dl (14.0-18.0); LYMPHOCYTES # 1.9 10^3/ul (0.8-2.9); LYMPHOCYTES % 8.5 % (15.0-51.0); MEAN CORPUSCULAR HEMOGLOBIN 28.3 pg (29.0-33.0); MEAN CORPUSCULAR HGB CONC 30.9 g/dl (32.0-37.0); MEAN CORPUSCULAR VOLUME 91.7 fl (82.0-101.0); MEAN PLATELET VOLUME 11.3 fl (7.4-10.4); MONOCYTE # 1.1 10^3/ul (0.3-0.9); NEUTROPHIL # 18.4 10^3/ul (1.6-7.5); NEUTROPHILS % 84.8 % (39.0-77.0); PLATELET COUNT 400 10^3/UL (140-415); RED BLOOD COUNT 3.14 10^6/ul (4.70-6.10); RED CELL DISTRIBUTION WIDTH 16.5 % (11.5-14.5)
[2018-03-16 09:06] LABS: WHITE BLOOD COUNT 21.7 10^3/ul (4.8-10.8)
[2018-03-16] MEDS: COLLAGENASE 5 GM (UD JAR) TOP (09:06)
[2018-03-16] MEDS: BALSAM PERU/CASTOR OIL 60 GM TUBE TOP ×2 (09:06→21:05)
[2018-03-16] MEDS: MUPIROCIN 2% 22 GM OINT TOP ×2 (09:07→20:10)
[2018-03-16 09:30] LABS: ANION GAP 8 (5-13); BLOOD UREA NITROGEN 29 mg/dl (7-20); CALCIUM 8.6 mg/dl (8.4-10.2); CARBON DIOXIDE 33 mmol/L (21-31); CHLORIDE 100 mmol/L (97-110); CREATININE 0.87 mg/dl (0.61-1.24); GLUCOSE 126 mg/dl (70-220); POTASSIUM 4.7 mmol/L (3.5-5.1); SODIUM 141 mmol/L (135-144)
[2018-03-16] MEDS: FLUCONAZOLE 100 MG TAB PO (16:00)
[2018-03-17] MEDS: LANSOPRAZOLE 30 MG CAP PO ×2 (05:34→18:22)
[2018-03-17 05:42] LABS: ADD MAN DIFF? NO
[2018-03-17 05:55] LABS: WHITE BLOOD COUNT 12.8 10^3/ul (4.8-10.8)
[2018-03-17 05:55] LABS: BASOPHIL # 0.1 10^3/ul (0.0-0.1); BASOPHILS % 0.5 % (0.0-2.0); EOSINOPHILS # 0.4 10^3/ul (0.0-0.5); HEMOGLOBIN 8.4 g/dl (14.0-18.0); LYMPHOCYTES # 2.2 10^3/ul (0.8-2.9); LYMPHOCYTES % 17.2 % (15.0-51.0); MEAN CORPUSCULAR HEMOGLOBIN 28.3 pg (29.0-33.0); MEAN CORPUSCULAR HGB CONC 31.1 g/dl (32.0-37.0); MEAN CORPUSCULAR VOLUME 90.9 fl (82.0-101.0); MEAN PLATELET VOLUME 11.4 fl (7.4-10.4); MONOCYTE # 0.9 10^3/ul (0.3-0.9); MONOCYTES % 7.4 % (0.0-11.0); NEUTROPHILS % 70.1 % (39.0-77.0); PLATELET COUNT 385 10^3/UL (140-415); RED BLOOD COUNT 2.97 10^6/ul (4.70-6.10); RED CELL DISTRIBUTION WIDTH 16.6 % (11.5-14.5)
[2018-03-17 06:11] LABS: ANION GAP 6 (5-13); BLOOD UREA NITROGEN 29 mg/dl (7-20); CALCIUM 8.7 mg/dl (8.4-10.2); CARBON DIOXIDE 32 mmol/L (21-31); CHLORIDE 103 mmol/L (97-110); CREATININE 0.84 mg/dl (0.61-1.24); GLUCOSE 125 mg/dl (70-220); SODIUM 141 mmol/L (135-144)
[2018-03-17 06:14] LABS: POTASSIUM 4.2 mmol/L (3.5-5.1)
[2018-03-17] MEDS: MUPIROCIN 2% 22 GM OINT TOP ×2 (09:51→22:11)
[2018-03-17] MEDS: ZINC SULFATE 220 MG CAP NGT (09:51)
[2018-03-17] MEDS: COLLAGENASE 5 GM (UD JAR) TOP (09:51)
[2018-03-17] MEDS: ASCORBIC ACID 500 MG TAB NGT (09:51)
[2018-03-17] MEDS: FLUCONAZOLE 100 MG TAB PO (09:51)
[2018-03-17] MEDS: BALSAM PERU/CASTOR OIL 60 GM TUBE TOP ×2 (09:51→22:11)
[2018-03-17] MEDS: MULTIVITAMINS 30 ML CUP NGT (09:51)
[2018-03-17] MEDS: MEROPENEM 500MG/50 ML (PMX) 50 ML IVPB (16:07)
[2018-03-18] MEDS: MEROPENEM 500MG/50 ML (PMX) 50 ML IVPB ×3 (00:41→20:40)
[2018-03-18 05:07] LABS: ADD MAN DIFF? NO
[2018-03-18 05:11] LABS: BASOPHIL # 0.1 10^3/ul (0.0-0.1); BASOPHILS % 0.6 % (0.0-2.0); EOSINOPHILS # 0.3 10^3/ul (0.0-0.5); EOSINOPHILS % 2.5 % (0.0-7.0); HEMOGLOBIN 8.6 g/dl (14.0-18.0); LYMPHOCYTES # 2.1 10^3/ul (0.8-2.9); LYMPHOCYTES % 17.3 % (15.0-51.0); MEAN CORPUSCULAR HEMOGLOBIN 27.8 pg (29.0-33.0); MEAN CORPUSCULAR HGB CONC 30.7 g/dl (32.0-37.0); MEAN CORPUSCULAR VOLUME 90.6 fl (82.0-101.0); MEAN PLATELET VOLUME 10.8 fl (7.4-10.4); MONOCYTES % 7.8 % (0.0-11.0); NEUTROPHIL # 8.5 10^3/ul (1.6-7.5); NEUTROPHILS % 69.8 % (39.0-77.0); PLATELET COUNT 365 10^3/UL (140-415); RED BLOOD COUNT 3.09 10^6/ul (4.70-6.10); RED CELL DISTRIBUTION WIDTH 16.6 % (11.5-14.5)
[2018-03-18 05:11] LABS: WHITE BLOOD COUNT 12.2 10^3/ul (4.8-10.8)
[2018-03-18 05:33] LABS: ANION GAP 7 (5-13); BLOOD UREA NITROGEN 29 mg/dl (7-20); CALCIUM 8.5 mg/dl (8.4-10.2); CARBON DIOXIDE 31 mmol/L (21-31); CHLORIDE 102 mmol/L (97-110); CREATININE 0.96 mg/dl (0.61-1.24); GLUCOSE 103 mg/dl (70-220); POTASSIUM 4.5 mmol/L (3.5-5.1); SODIUM 140 mmol/L (135-144)
[2018-03-18] MEDS: LANSOPRAZOLE 30 MG CAP PO ×2 (05:38→18:21)
[2018-03-18] MEDS: BALSAM PERU/CASTOR OIL 60 GM TUBE TOP ×2 (08:29→20:40)
[2018-03-18] MEDS: ASCORBIC ACID 500 MG TAB NGT (08:29)
[2018-03-18] MEDS: COLLAGENASE 5 GM (UD JAR) TOP (08:29)
[2018-03-18] MEDS: MULTIVITAMINS 30 ML CUP NGT (08:29)
[2018-03-18] MEDS: FLUCONAZOLE 100 MG TAB PO (08:29)
[2018-03-18] MEDS: MUPIROCIN 2% 22 GM OINT TOP ×2 (08:29→20:40)
[2018-03-18] MEDS: ZINC SULFATE 220 MG CAP NGT (09:11)
[2018-03-19 05:35] LABS: ADD MAN DIFF? NO
[2018-03-19] MEDS: LANSOPRAZOLE 30 MG CAP PO ×2 (05:41→18:11)
[2018-03-19 05:47] LABS: WHITE BLOOD COUNT 12.4 10^3/ul (4.8-10.8)
[2018-03-19 05:47] LABS: BASOPHIL # 0.1 10^3/ul (0.0-0.1); BASOPHILS % 0.6 % (0.0-2.0); EOSINOPHILS # 0.3 10^3/ul (0.0-0.5); EOSINOPHILS % 2.3 % (0.0-7.0); HEMATOCRIT 27.8 % (42.0-52.0); HEMOGLOBIN 8.5 g/dl (14.0-18.0); LYMPHOCYTES # 2.3 10^3/ul (0.8-2.9); LYMPHOCYTES % 18.5 % (15.0-51.0); MEAN CORPUSCULAR HEMOGLOBIN 27.9 pg (29.0-33.0); MEAN CORPUSCULAR HGB CONC 30.6 g/dl (32.0-37.0); MEAN CORPUSCULAR VOLUME 91.1 fl (82.0-101.0); MEAN PLATELET VOLUME 10.9 fl (7.4-10.4); NEUTROPHIL # 8.5 10^3/ul (1.6-7.5); PLATELET COUNT 349 10^3/UL (140-415); RED BLOOD COUNT 3.05 10^6/ul (4.70-6.10); RED CELL DISTRIBUTION WIDTH 16.6 % (11.5-14.5)
[2018-03-19 06:26] LABS: ANION GAP 6 (5-13); BLOOD UREA NITROGEN 29 mg/dl (7-20); CALCIUM 8.7 mg/dl (8.4-10.2); CARBON DIOXIDE 32 mmol/L (21-31); CHLORIDE 103 mmol/L (97-110); CREATININE 0.85 mg/dl (0.61-1.24); GLUCOSE 90 mg/dl (70-220); POTASSIUM 4.3 mmol/L (3.5-5.1); SODIUM 141 mmol/L (135-144)
[2018-03-19] MEDS: ZINC SULFATE 220 MG CAP NGT (08:05)
[2018-03-19] MEDS: MUPIROCIN 2% 22 GM OINT TOP (08:05)
[2018-03-19] MEDS: MEROPENEM 500MG/50 ML (PMX) 50 ML IVPB ×2 (08:05→21:23)
[2018-03-19] MEDS: ASCORBIC ACID 500 MG TAB NGT (08:05)
[2018-03-19] MEDS: MULTIVITAMINS 30 ML CUP NGT (08:05)
[2018-03-19] MEDS: FLUCONAZOLE 100 MG TAB PO (08:05)
[2018-03-19] MEDS: COLLAGENASE 5 GM (UD JAR) TOP (08:05)
[2018-03-19] MEDS: BALSAM PERU/CASTOR OIL 60 GM TUBE TOP ×2 (08:05→21:23)
[2018-03-19] MEDS ORDERED: morphine LIQ (10 MG/5 ML) CUP NGT (21:30)
[2018-03-20] MEDS: LANSOPRAZOLE 30 MG CAP PO ×2 (05:53→17:29)
[2018-03-20 06:05] LABS: ADD MAN DIFF? NO
[2018-03-20 06:10] LABS: BASOPHIL # 0.1 10^3/ul (0.0-0.1); BASOPHILS % 0.6 % (0.0-2.0); EOSINOPHILS # 0.3 10^3/ul (0.0-0.5); EOSINOPHILS % 2.5 % (0.0-7.0); HEMATOCRIT 28.3 % (42.0-52.0); HEMOGLOBIN 8.6 g/dl (14.0-18.0); MEAN CORPUSCULAR HEMOGLOBIN 27.9 pg (29.0-33.0); MEAN CORPUSCULAR HGB CONC 30.4 g/dl (32.0-37.0); MEAN CORPUSCULAR VOLUME 91.9 fl (82.0-101.0); MEAN PLATELET VOLUME 11.3 fl (7.4-10.4); MONOCYTE # 0.9 10^3/ul (0.3-0.9); MONOCYTES % 8.5 % (0.0-11.0); NEUTROPHIL # 7.6 10^3/ul (1.6-7.5); NEUTROPHILS % 68.7 % (39.0-77.0); PLATELET COUNT 329 10^3/UL (140-415); RED BLOOD COUNT 3.08 10^6/ul (4.70-6.10); RED CELL DISTRIBUTION WIDTH 16.6 % (11.5-14.5)
[2018-03-20 06:10] LABS: WHITE BLOOD COUNT 11.1 10^3/ul (4.8-10.8)
[2018-03-20 06:42] LABS: ANION GAP 4 (5-13); BLOOD UREA NITROGEN 28 mg/dl (7-20); CALCIUM 8.6 mg/dl (8.4-10.2); CARBON DIOXIDE 32 mmol/L (21-31); CHLORIDE 107 mmol/L (97-110); CREATININE 0.76 mg/dl (0.61-1.24); GLUCOSE 117 mg/dl (70-220); POTASSIUM 4.5 mmol/L (3.5-5.1); SODIUM 143 mmol/L (135-144)
[2018-03-20] MEDS: ASCORBIC ACID 500 MG TAB NGT (08:52)
[2018-03-20] MEDS: COLLAGENASE 5 GM (UD JAR) TOP (08:52)
[2018-03-20] MEDS: BALSAM PERU/CASTOR OIL 60 GM TUBE TOP ×2 (08:52→21:00)
[2018-03-20] MEDS: MEROPENEM 500MG/50 ML (PMX) 50 ML IVPB ×2 (08:52→20:46)
[2018-03-20] MEDS: MULTIVITAMINS 30 ML CUP NGT (08:52)
[2018-03-20] MEDS: ZINC SULFATE 220 MG CAP NGT (08:52)
[2018-03-21] MEDS: LANSOPRAZOLE 30 MG CAP PO ×2 (05:58→19:00)
[2018-03-21] MEDS: MULTIVITAMINS 30 ML CUP NGT (09:43)
[2018-03-21] MEDS: ASCORBIC ACID 500 MG TAB NGT (09:43)
[2018-03-21] MEDS: ZINC SULFATE 220 MG CAP NGT (09:43)
[2018-03-21] MEDS: MEROPENEM 500MG/50 ML (PMX) 50 ML IVPB ×2 (10:48→20:37)
[2018-03-21] MEDS: COLLAGENASE 5 GM (UD JAR) TOP (16:36)
[2018-03-21] MEDS: BALSAM PERU/CASTOR OIL 60 GM TUBE TOP ×2 (16:37→20:37)
[2018-03-22] MEDS: LANSOPRAZOLE 30 MG CAP PO ×2 (06:06→18:53)
[2018-03-22] MEDS: COLLAGENASE 5 GM (UD JAR) TOP (09:13)
[2018-03-22] MEDS: ZINC SULFATE 220 MG CAP NGT (09:13)
[2018-03-22] MEDS: MULTIVITAMINS 30 ML CUP NGT (09:13)
[2018-03-22] MEDS: ASCORBIC ACID 500 MG TAB NGT (09:13)
[2018-03-22] MEDS: BALSAM PERU/CASTOR OIL 60 GM TUBE TOP ×2 (09:14→20:52)
[2018-03-22] MEDS: MEROPENEM 500MG/50 ML (PMX) 50 ML IVPB ×2 (09:16→20:52)
[2018-03-23] MEDS: LANSOPRAZOLE 30 MG CAP PO ×2 (05:39→17:59)
[2018-03-23] MEDS: COLLAGENASE 5 GM (UD JAR) TOP (08:47)
[2018-03-23] MEDS: MEROPENEM 500MG/50 ML (PMX) 50 ML IVPB (08:47)
[2018-03-23] MEDS: ASCORBIC ACID 500 MG TAB NGT (08:47)
[2018-03-23] MEDS: ZINC SULFATE 220 MG CAP NGT (08:47)
[2018-03-23] MEDS: MULTIVITAMINS 30 ML CUP NGT (08:47)
[2018-03-23] MEDS: BALSAM PERU/CASTOR OIL 60 GM TUBE TOP ×2 (08:49→20:48)
[2018-03-24 05:38] LABS: ADD MAN DIFF? NO
[2018-03-24] MEDS: LANSOPRAZOLE 30 MG CAP PO ×2 (05:47→21:44)
[2018-03-24 05:51] LABS: BASOPHIL # 0.1 10^3/ul (0.0-0.1); BASOPHILS % 0.5 % (0.0-2.0); EOSINOPHILS # 0.7 10^3/ul (0.0-0.5); EOSINOPHILS % 4.3 % (0.0-7.0); HEMATOCRIT 28.3 % (42.0-52.0); HEMOGLOBIN 8.6 g/dl (14.0-18.0); LYMPHOCYTES % 12.1 % (15.0-51.0); MEAN CORPUSCULAR HGB CONC 30.4 g/dl (32.0-37.0); MEAN CORPUSCULAR VOLUME 92.2 fl (82.0-101.0); MEAN PLATELET VOLUME 11.8 fl (7.4-10.4); MONOCYTE # 1.1 10^3/ul (0.3-0.9); MONOCYTES % 6.7 % (0.0-11.0); NEUTROPHIL # 12.4 10^3/ul (1.6-7.5); PLATELET COUNT 332 10^3/UL (140-415); RED BLOOD COUNT 3.07 10^6/ul (4.70-6.10); RED CELL DISTRIBUTION WIDTH 17.1 % (11.5-14.5)
[2018-03-24 05:51] LABS: WHITE BLOOD COUNT 16.5 10^3/ul (4.8-10.8)
[2018-03-24 06:27] LABS: ANION GAP 4 (5-13); BLOOD UREA NITROGEN 38 mg/dl (7-20); CALCIUM 8.9 mg/dl (8.4-10.2); CARBON DIOXIDE 33 mmol/L (21-31); CHLORIDE 106 mmol/L (97-110); CREATININE 0.92 mg/dl (0.61-1.24); GLUCOSE 129 mg/dl (70-220); POTASSIUM 4.1 mmol/L (3.5-5.1); SODIUM 143 mmol/L (135-144)
[2018-03-24] MEDS: ASCORBIC ACID 500 MG TAB NGT (09:00)
[2018-03-24] MEDS: ZINC SULFATE 220 MG CAP NGT (09:00)
[2018-03-24] MEDS: BALSAM PERU/CASTOR OIL 60 GM TUBE TOP ×2 (09:01→21:45)
[2018-03-24] MEDS: COLLAGENASE 5 GM (UD JAR) TOP (09:01)
[2018-03-24] MEDS: MULTIVITAMINS 30 ML CUP NGT (09:01)
[2018-03-25] MEDS: LANSOPRAZOLE 30 MG CAP PO ×2 (05:31→18:37)
[2018-03-25] MEDS: MULTIVITAMINS 30 ML CUP NGT (09:00)
[2018-03-25] MEDS ORDERED: COLLAGENASE 5 GM (UD JAR) TOP (09:00)
[2018-03-25] MEDS: ZINC SULFATE 220 MG CAP NGT (09:00)
[2018-03-25] MEDS: ASCORBIC ACID 500 MG TAB NGT (09:00)
[2018-03-25] MEDS ORDERED: PROPOFOL 20 ML (09:59)
[2018-03-25] MEDS ORDERED: CEFAZOLIN 1 GM/50 ML (PMX) 50 ML IVPB (10:23)
[2018-03-25] MEDS ORDERED: FENTAnyl 50 MCG/ML VIAL IV ×3 (11:00)
[2018-03-25] MEDS ORDERED: ONDANSETRON 4 MG INJ IV (11:00)
[2018-03-25] MEDS: FOSFOMYCIN 3 GM PACKET PO (18:38)
[2018-03-25] MEDS: COLLAGENASE 5 GM (UD JAR) TOP (18:39)
[2018-03-25] MEDS: TAMSULOSIN (SR) 0.4 MG CAP PO (21:19)
[2018-03-25] MEDS: ZYVOX 600 MG TAB PO (21:20)
[2018-03-26 05:56] LABS: ADD MAN DIFF? NO
[2018-03-26 06:09] LABS: WHITE BLOOD COUNT 14.4 10^3/ul (4.8-10.8)
[2018-03-26 06:09] LABS: BASOPHIL # 0.1 10^3/ul (0.0-0.1); BASOPHILS % 0.6 % (0.0-2.0); EOSINOPHILS # 0.4 10^3/ul (0.0-0.5); EOSINOPHILS % 2.4 % (0.0-7.0); HEMOGLOBIN 8.8 g/dl (14.0-18.0); LYMPHOCYTES # 1.8 10^3/ul (0.8-2.9); LYMPHOCYTES % 12.7 % (15.0-51.0); MEAN CORPUSCULAR HEMOGLOBIN 28.5 pg (29.0-33.0); MEAN CORPUSCULAR HGB CONC 30.3 g/dl (32.0-37.0); MEAN CORPUSCULAR VOLUME 93.9 fl (82.0-101.0); MEAN PLATELET VOLUME 11.9 fl (7.4-10.4); MONOCYTES % 6.6 % (0.0-11.0); NEUTROPHIL # 11.1 10^3/ul (1.6-7.5); NEUTROPHILS % 76.7 % (39.0-77.0); PLATELET COUNT 351 10^3/UL (140-415); RED BLOOD COUNT 3.09 10^6/ul (4.70-6.10); RED CELL DISTRIBUTION WIDTH 16.4 % (11.5-14.5)
[2018-03-26] MEDS: LANSOPRAZOLE 30 MG CAP PO ×2 (06:18→18:48)
[2018-03-26] MEDS: MULTIVITAMINS 30 ML CUP NGT (09:00)
[2018-03-26] MEDS: ZYVOX 600 MG TAB PO ×2 (09:00→20:24)
[2018-03-26] MEDS: ZINC SULFATE 220 MG CAP NGT (09:00)
[2018-03-26] MEDS: ASCORBIC ACID 500 MG TAB NGT (09:00)
[2018-03-26] MEDS: COLLAGENASE 5 GM (UD JAR) TOP (10:11)
[2018-03-26] MEDS: TAMSULOSIN (SR) 0.4 MG CAP PO (20:24)
[2018-03-27] MEDS: LANSOPRAZOLE 30 MG CAP PO ×2 (05:47→17:37)
[2018-03-27 05:50] LABS: ADD MAN DIFF? NO
[2018-03-27 05:59] LABS: BASOPHIL # 0.1 10^3/ul (0.0-0.1); BASOPHILS % 0.7 % (0.0-2.0); EOSINOPHILS # 0.3 10^3/ul (0.0-0.5); HEMATOCRIT 31.7 % (42.0-52.0); HEMOGLOBIN 9.7 g/dl (14.0-18.0); LYMPHOCYTES % 15.6 % (15.0-51.0); MEAN CORPUSCULAR HEMOGLOBIN 28.4 pg (29.0-33.0); MEAN CORPUSCULAR HGB CONC 30.6 g/dl (32.0-37.0); MEAN PLATELET VOLUME 12.3 fl (7.4-10.4); MONOCYTE # 0.9 10^3/ul (0.3-0.9); MONOCYTES % 6.7 % (0.0-11.0); NEUTROPHIL # 9.6 10^3/ul (1.6-7.5); PLATELET COUNT 307 10^3/UL (140-415); RED BLOOD COUNT 3.41 10^6/ul (4.70-6.10); RED CELL DISTRIBUTION WIDTH 16.4 % (11.5-14.5)
[2018-03-27 07:28] LABS: ANION GAP 5 (5-13); BLOOD UREA NITROGEN 33 mg/dl (7-20); CALCIUM 9.5 mg/dl (8.4-10.2); CARBON DIOXIDE 34 mmol/L (21-31); CHLORIDE 110 mmol/L (97-110); CREATININE 1.09 mg/dl (0.61-1.24); GLUCOSE 102 mg/dl (70-220); POTASSIUM 4.6 mmol/L (3.5-5.1); SODIUM 149 mmol/L (135-144)
[2018-03-27] MEDS: MULTIVITAMINS 30 ML CUP NGT (09:00)
[2018-03-27] MEDS: ZINC SULFATE 220 MG CAP NGT (09:00)
[2018-03-27] MEDS: ASCORBIC ACID 500 MG TAB NGT (09:00)
[2018-03-27] MEDS: ZYVOX 600 MG TAB PO ×2 (09:00→20:08)
[2018-03-27] MEDS ORDERED: DIATR MEGLU/DIATRIZOATE SODIUM 120 ML BTL (10:52)
[2018-03-27] MEDS ORDERED: LIDOCAINE 1% (MPF) 5 ML VIAL ×2 (11:04)
[2018-03-27] MEDS ORDERED: EPHEDrine SULFATE 50 MG/5 ML SYG IV (11:30)
[2018-03-27] MEDS ORDERED: hydrALAzine 20 MG INJ IV (11:30)
[2018-03-27] MEDS ORDERED: LABETALOL HCL 20MG INJ IV (11:30)
[2018-03-27] MEDS ORDERED: FENTAnyl 50 MCG/ML VIAL IV ×3 (11:30)
[2018-03-27] MEDS ORDERED: ONDANSETRON 4 MG INJ IV (11:30)
[2018-03-27] MEDS: COLLAGENASE 5 GM (UD JAR) TOP (14:28)
[2018-03-27] MEDS: TAMSULOSIN (SR) 0.4 MG CAP PO (20:08)
[2018-03-28] MEDS: LANSOPRAZOLE 30 MG CAP PO ×2 (05:27→17:37)
[2018-03-28 05:52] LABS: ADD MAN DIFF? NO
[2018-03-28 05:59] LABS: BASOPHIL # 0.1 10^3/ul (0.0-0.1); BASOPHILS % 0.7 % (0.0-2.0); EOSINOPHILS # 0.3 10^3/ul (0.0-0.5); HEMATOCRIT 30.6 % (42.0-52.0); HEMOGLOBIN 9.1 g/dl (14.0-18.0); LYMPHOCYTES # 1.9 10^3/ul (0.8-2.9); LYMPHOCYTES % 19.4 % (15.0-51.0); MEAN CORPUSCULAR HEMOGLOBIN 28.2 pg (29.0-33.0); MEAN CORPUSCULAR HGB CONC 29.7 g/dl (32.0-37.0); MEAN CORPUSCULAR VOLUME 94.7 fl (82.0-101.0); MEAN PLATELET VOLUME 11.7 fl (7.4-10.4); MONOCYTE # 0.7 10^3/ul (0.3-0.9); MONOCYTES % 7.3 % (0.0-11.0); NEUTROPHIL # 6.7 10^3/ul (1.6-7.5); PLATELET COUNT 348 10^3/UL (140-415); RED BLOOD COUNT 3.23 10^6/ul (4.70-6.10)
[2018-03-28 05:59] LABS: WHITE BLOOD COUNT 9.8 10^3/ul (4.8-10.8)
[2018-03-28 06:23] LABS: ANION GAP 3 (5-13); BLOOD UREA NITROGEN 30 mg/dl (7-20); CALCIUM 9.2 mg/dl (8.4-10.2); CARBON DIOXIDE 35 mmol/L (21-31); CHLORIDE 112 mmol/L (97-110); CREATININE 1.13 mg/dl (0.61-1.24); GLUCOSE 118 mg/dl (70-220); POTASSIUM 3.9 mmol/L (3.5-5.1); SODIUM 150 mmol/L (135-144)
[2018-03-28] MEDS: ZYVOX 600 MG TAB PO ×2 (09:10→21:37)
[2018-03-28] MEDS: MULTIVITAMINS 30 ML CUP NGT (09:10)
[2018-03-28] MEDS: ZINC SULFATE 220 MG CAP NGT (09:10)
[2018-03-28] MEDS: COLLAGENASE 5 GM (UD JAR) TOP (09:10)
[2018-03-28] MEDS: ASCORBIC ACID 500 MG TAB NGT (09:10)
[2018-03-28] MEDS: TAMSULOSIN (SR) 0.4 MG CAP PO (21:37)
[2018-03-29] MEDS: LANSOPRAZOLE 30 MG CAP PO ×2 (05:29→17:25)
[2018-03-29 05:59] LABS: ANION GAP -1 (5-13); BLOOD UREA NITROGEN 32 mg/dl (7-20); CALCIUM 8.7 mg/dl (8.4-10.2); CARBON DIOXIDE 33 mmol/L (21-31); CHLORIDE 115 mmol/L (97-110); CREATININE 1.12 mg/dl (0.61-1.24); GLUCOSE 157 mg/dl (70-220); POTASSIUM 3.9 mmol/L (3.5-5.1); SODIUM 147 mmol/L (135-144)
[2018-03-29] MEDS: MULTIVITAMINS 30 ML CUP NGT (08:31)
[2018-03-29] MEDS: COLLAGENASE 5 GM (UD JAR) TOP (08:31)
[2018-03-29] MEDS: ASCORBIC ACID 500 MG TAB NGT (08:31)
[2018-03-29] MEDS: ZINC SULFATE 220 MG CAP NGT (08:31)
[2018-03-29] MEDS: ZYVOX 600 MG TAB PO ×2 (08:31→20:33)
[2018-03-29] MEDS: TAMSULOSIN (SR) 0.4 MG CAP PO (20:33)
[2018-03-30 06:11] LABS: ANION GAP 3 (5-13); BLOOD UREA NITROGEN 33 mg/dl (7-20); CALCIUM 8.7 mg/dl (8.4-10.2); CARBON DIOXIDE 32 mmol/L (21-31); CHLORIDE 110 mmol/L (97-110); CREATININE 0.97 mg/dl (0.61-1.24); GLUCOSE 137 mg/dl (70-220); POTASSIUM 4.2 mmol/L (3.5-5.1); SODIUM 145 mmol/L (135-144)
[2018-03-30] MEDS: LANSOPRAZOLE 30 MG CAP PO ×2 (06:18→18:33)
[2018-03-30] MEDS: ASCORBIC ACID 500 MG TAB NGT (08:04)
[2018-03-30] MEDS: ZINC SULFATE 220 MG CAP NGT (08:04)
[2018-03-30] MEDS: COLLAGENASE 5 GM (UD JAR) TOP (08:04)
[2018-03-30] MEDS: MULTIVITAMINS 30 ML CUP NGT (08:04)
[2018-03-30] MEDS: ZYVOX 600 MG TAB PO ×2 (08:04→20:08)
[2018-03-30] MEDS: TAMSULOSIN (SR) 0.4 MG CAP PO (20:08)
[2018-03-31 05:18] LABS: ADD MAN DIFF? NO
[2018-03-31 05:41] LABS: BASOPHIL # 0.1 10^3/ul (0.0-0.1); BASOPHILS % 0.5 % (0.0-2.0); EOSINOPHILS # 0.7 10^3/ul (0.0-0.5); EOSINOPHILS % 5.7 % (0.0-7.0); HEMATOCRIT 27.3 % (42.0-52.0); HEMOGLOBIN 8.3 g/dl (14.0-18.0); LYMPHOCYTES # 2.1 10^3/ul (0.8-2.9); LYMPHOCYTES % 16.8 % (15.0-51.0); MEAN CORPUSCULAR HEMOGLOBIN 28.5 pg (29.0-33.0); MEAN CORPUSCULAR HGB CONC 30.4 g/dl (32.0-37.0); MEAN CORPUSCULAR VOLUME 93.8 fl (82.0-101.0); MEAN PLATELET VOLUME 11.8 fl (7.4-10.4); MONOCYTE # 0.8 10^3/ul (0.3-0.9); MONOCYTES % 6.5 % (0.0-11.0); NEUTROPHIL # 8.8 10^3/ul (1.6-7.5); PLATELET COUNT 316 10^3/UL (140-415); RED BLOOD COUNT 2.91 10^6/ul (4.70-6.10); RED CELL DISTRIBUTION WIDTH 15.8 % (11.5-14.5)
[2018-03-31 05:41] LABS: WHITE BLOOD COUNT 12.7 10^3/ul (4.8-10.8)
[2018-03-31 06:17] LABS: ANION GAP 4 (5-13); BLOOD UREA NITROGEN 29 mg/dl (7-20); CALCIUM 8.6 mg/dl (8.4-10.2); CARBON DIOXIDE 30 mmol/L (21-31); CHLORIDE 108 mmol/L (97-110); CREATININE 0.92 mg/dl (0.61-1.24); GLUCOSE 146 mg/dl (70-220); POTASSIUM 3.9 mmol/L (3.5-5.1); SODIUM 142 mmol/L (135-144)
[2018-03-31] MEDS: LANSOPRAZOLE 30 MG CAP PO ×2 (06:44→18:10)
[2018-03-31] MEDS: ASCORBIC ACID 500 MG TAB NGT (08:41)
[2018-03-31] MEDS: ZYVOX 600 MG TAB PO (08:41)
[2018-03-31] MEDS: ZINC SULFATE 220 MG CAP NGT (08:41)
[2018-03-31] MEDS: MULTIVITAMINS 30 ML CUP NGT (08:41)
[2018-03-31] MEDS: COLLAGENASE 5 GM (UD JAR) TOP (16:00)
[2018-03-31] MEDS: TAMSULOSIN (SR) 0.4 MG CAP PO (20:44)
[2018-04-01] MEDS: LANSOPRAZOLE 30 MG CAP PO ×2 (06:19→18:01)
[2018-04-01 08:50] LABS: BLOOD UREA NITROGEN 31 mg/dl (7-20); CALCIUM 8.6 mg/dl (8.4-10.2); CHLORIDE 109 mmol/L (97-110); CREATININE 0.89 mg/dl (0.61-1.24); GLUCOSE 104 mg/dl (70-220); POTASSIUM 4.6 mmol/L (3.5-5.1); SODIUM 140 mmol/L (135-144)
[2018-04-01] MEDS: MULTIVITAMINS 30 ML CUP NGT (08:51)
[2018-04-01] MEDS: TAMSULOSIN (SR) 0.4 MG CAP PO ×2 (08:51→21:36)
[2018-04-01] MEDS: COLLAGENASE 5 GM (UD JAR) TOP (08:51)
[2018-04-01] MEDS: ASCORBIC ACID 500 MG TAB NGT (08:51)
[2018-04-01] MEDS: ZINC SULFATE 220 MG CAP NGT (08:51)
[2018-04-01 09:37] LABS: ANION GAP 1 (5-13); CARBON DIOXIDE 30 mmol/L (21-31)
[2018-04-01] MEDS: BETHANECHOL 10 MG TAB PO (21:36)
[2018-04-02] MEDS: LANSOPRAZOLE 30 MG CAP PO ×2 (05:13→17:50)
[2018-04-02 07:09] LABS: ANION GAP 3 (5-13); BLOOD UREA NITROGEN 31 mg/dl (7-20); CALCIUM 8.6 mg/dl (8.4-10.2); CARBON DIOXIDE 30 mmol/L (21-31); CHLORIDE 105 mmol/L (97-110); CREATININE 0.89 mg/dl (0.61-1.24); GLUCOSE 126 mg/dl (70-220); SODIUM 138 mmol/L (135-144)
[2018-04-02] MEDS: ASCORBIC ACID 500 MG TAB NGT (08:42)
[2018-04-02] MEDS: BETHANECHOL 10 MG TAB PO ×2 (08:42→13:19)
[2018-04-02] MEDS: TAMSULOSIN (SR) 0.4 MG CAP PO ×2 (08:42→20:39)
[2018-04-02] MEDS: COLLAGENASE 5 GM (UD JAR) TOP (08:42)
[2018-04-02] MEDS: ZINC SULFATE 220 MG CAP NGT (08:42)
[2018-04-02] MEDS: POLYETHYLENE GLYCOL 17 GM PACKET GTB (08:46)
[2018-04-02] MEDS: MULTIVITAMINS 30 ML CUP NGT (08:46)
[2018-04-02] MEDS: BETHANECHOL 25 MG TAB PO (20:39)
[2018-04-02] MEDS ORDERED: BETHANECHOL 10 MG TAB PO (21:00)
[2018-04-03] MEDS: LANSOPRAZOLE 30 MG CAP PO ×2 (05:44→17:40)
[2018-04-03] MEDS: POLYETHYLENE GLYCOL 17 GM PACKET GTB (09:03)
[2018-04-03] MEDS: COLLAGENASE 5 GM (UD JAR) TOP (09:03)
[2018-04-03] MEDS: BETHANECHOL 25 MG TAB PO ×3 (09:03→21:47)
[2018-04-03] MEDS: TAMSULOSIN (SR) 0.4 MG CAP PO ×2 (09:03→21:47)
[2018-04-03] MEDS: ZINC SULFATE 220 MG CAP NGT (09:03)
[2018-04-03] MEDS: MULTIVITAMINS 30 ML CUP NGT (09:03)
[2018-04-03] MEDS: ASCORBIC ACID 500 MG TAB NGT (09:04)
[2018-04-04] MEDS: LANSOPRAZOLE 30 MG CAP PO ×2 (05:46→18:50)
[2018-04-04] MEDS: POLYETHYLENE GLYCOL 17 GM PACKET GTB (09:44)
[2018-04-04] MEDS: BETHANECHOL 25 MG TAB PO ×3 (09:45→21:16)
[2018-04-04] MEDS: ZINC SULFATE 220 MG CAP NGT (09:45)
[2018-04-04] MEDS: MULTIVITAMINS 30 ML CUP NGT (09:45)
[2018-04-04] MEDS: ASCORBIC ACID 500 MG TAB NGT (09:45)
[2018-04-04] MEDS: TAMSULOSIN (SR) 0.4 MG CAP PO ×2 (09:45→21:16)
[2018-04-05 06:10] LABS: ADD MAN DIFF? NO
[2018-04-05 06:13] LABS: WHITE BLOOD COUNT 13.1 10^3/ul (4.8-10.8)
[2018-04-05 06:13] LABS: BASOPHIL # 0.1 10^3/ul (0.0-0.1); BASOPHILS % 0.6 % (0.0-2.0); EOSINOPHILS # 0.9 10^3/ul (0.0-0.5); EOSINOPHILS % 6.6 % (0.0-7.0); HEMATOCRIT 27.3 % (42.0-52.0); HEMOGLOBIN 8.4 g/dl (14.0-18.0); LYMPHOCYTES # 1.8 10^3/ul (0.8-2.9); LYMPHOCYTES % 13.8 % (15.0-51.0); MEAN CORPUSCULAR HEMOGLOBIN 28.3 pg (29.0-33.0); MEAN CORPUSCULAR HGB CONC 30.8 g/dl (32.0-37.0); MEAN CORPUSCULAR VOLUME 91.9 fl (82.0-101.0); MEAN PLATELET VOLUME 11.3 fl (7.4-10.4); MONOCYTE # 1.1 10^3/ul (0.3-0.9); MONOCYTES % 8.1 % (0.0-11.0); NEUTROPHIL # 9.1 10^3/ul (1.6-7.5); NEUTROPHILS % 69.4 % (39.0-77.0); PLATELET COUNT 288 10^3/UL (140-415); RED BLOOD COUNT 2.97 10^6/ul (4.70-6.10); RED CELL DISTRIBUTION WIDTH 16.3 % (11.5-14.5)
[2018-04-05] MEDS: LANSOPRAZOLE 30 MG CAP PO ×2 (06:20→18:20)
[2018-04-05 07:40] LABS: ANION GAP 2 (5-13); BLOOD UREA NITROGEN 24 mg/dl (7-20); CARBON DIOXIDE 33 mmol/L (21-31); CHLORIDE 104 mmol/L (97-110); GLUCOSE 110 mg/dl (70-220); POTASSIUM 4.6 mmol/L (3.5-5.1); SODIUM 139 mmol/L (135-144)
[2018-04-05] MEDS: POLYETHYLENE GLYCOL 17 GM PACKET GTB (08:50)
[2018-04-05] MEDS: MULTIVITAMINS 30 ML CUP NGT (08:50)
[2018-04-05] MEDS: BETHANECHOL 25 MG TAB PO ×3 (08:50→21:31)
[2018-04-05] MEDS: ZINC SULFATE 220 MG CAP NGT (08:50)
[2018-04-05] MEDS: ASCORBIC ACID 500 MG TAB NGT (08:50)
[2018-04-05] MEDS: TAMSULOSIN (SR) 0.4 MG CAP PO ×2 (08:50→21:31)
[2018-04-06] MEDS: LANSOPRAZOLE 30 MG CAP PO ×2 (06:11→18:11)
[2018-04-06] MEDS: POLYETHYLENE GLYCOL 17 GM PACKET GTB (09:18)
[2018-04-06] MEDS: MULTIVITAMINS 30 ML CUP NGT (09:18)
[2018-04-06] MEDS: TAMSULOSIN (SR) 0.4 MG CAP PO ×2 (09:18→20:23)
[2018-04-06] MEDS: ASCORBIC ACID 500 MG TAB NGT (09:18)
[2018-04-06] MEDS: ZINC SULFATE 220 MG CAP NGT (09:18)
[2018-04-06] MEDS: BETHANECHOL 25 MG TAB PO ×3 (09:18→20:23)
[2018-04-07] MEDS: LANSOPRAZOLE 30 MG CAP PO ×2 (05:27→18:12)
[2018-04-07] MEDS: ZINC SULFATE 220 MG CAP NGT (10:19)
[2018-04-07] MEDS: POLYETHYLENE GLYCOL 17 GM PACKET GTB (10:19)
[2018-04-07] MEDS: BETHANECHOL 25 MG TAB PO ×3 (10:19→21:10)
[2018-04-07] MEDS: TAMSULOSIN (SR) 0.4 MG CAP PO ×2 (10:20→21:11)
[2018-04-07] MEDS: ASCORBIC ACID 500 MG TAB NGT (10:20)
[2018-04-08] MEDS: LANSOPRAZOLE 30 MG CAP PO ×2 (05:31→18:28)
[2018-04-08 06:40] LABS: ADD MAN DIFF? NO
[2018-04-08 06:48] LABS: WHITE BLOOD COUNT 10.6 10^3/ul (4.8-10.8)
[2018-04-08 06:48] LABS: BASOPHIL # 0.1 10^3/ul (0.0-0.1); BASOPHILS % 0.6 % (0.0-2.0); EOSINOPHILS # 0.9 10^3/ul (0.0-0.5); EOSINOPHILS % 8.5 % (0.0-7.0); HEMATOCRIT 26.7 % (42.0-52.0); HEMOGLOBIN 8.3 g/dl (14.0-18.0); LYMPHOCYTES # 1.9 10^3/ul (0.8-2.9); LYMPHOCYTES % 18.1 % (15.0-51.0); MEAN CORPUSCULAR HGB CONC 31.1 g/dl (32.0-37.0); MEAN CORPUSCULAR VOLUME 93.4 fl (82.0-101.0); MEAN PLATELET VOLUME 12.3 fl (7.4-10.4); MONOCYTE # 0.9 10^3/ul (0.3-0.9); MONOCYTES % 8.5 % (0.0-11.0); NEUTROPHIL # 6.7 10^3/ul (1.6-7.5); NEUTROPHILS % 62.6 % (39.0-77.0); PLATELET COUNT 277 10^3/UL (140-415); RED BLOOD COUNT 2.86 10^6/ul (4.70-6.10)
[2018-04-08 07:12] LABS: ANION GAP 2 (5-13); BLOOD UREA NITROGEN 40 mg/dl (7-20); CALCIUM 8.6 mg/dl (8.4-10.2); CARBON DIOXIDE 32 mmol/L (21-31); CHLORIDE 102 mmol/L (97-110); CREATININE 1.02 mg/dl (0.61-1.24); GLUCOSE 104 mg/dl (70-220); POTASSIUM 4.6 mmol/L (3.5-5.1); SODIUM 136 mmol/L (135-144)
[2018-04-08] MEDS: BETHANECHOL 25 MG TAB PO ×3 (09:17→20:56)
[2018-04-08] MEDS: TAMSULOSIN (SR) 0.4 MG CAP PO ×2 (09:17→20:56)
[2018-04-08] MEDS: ZINC SULFATE 220 MG CAP NGT (09:17)
[2018-04-08] MEDS: ASCORBIC ACID 500 MG TAB NGT (09:17)
[2018-04-08] MEDS: POLYETHYLENE GLYCOL 17 GM PACKET GTB (09:17)
== END 2018-04-08 22:05 | DRG 871 ==
LOC: 6WM 20:08 → ICU 02-21 19:05 → TEL 02-23 18:35 → 2NE 03-07 12:46 → E/R 17:51 → ICU 02-14 13:59
PROVIDERS: Internal Medicine
PROC: 0W3P8ZZ Control Bleeding in Gastrointestinal Tract, Via Natural or Artificial Opening Endoscopic (ICD-10-PCS; principal; 2018-02-20 07:30)
PROC: 0DB68ZX Excision of Stomach, Via Natural or Artificial Opening Endoscopic, Diagnostic (ICD-10-PCS; 2018-02-20 07:30)
PROC: 0DB78ZX Excision of Stomach, Pylorus, Via Natural or Artificial Opening Endoscopic, Diagnostic (ICD-10-PCS; 2018-02-20 07:30)
PROC: 0DJ08ZZ Inspection of Upper Intestinal Tract, Via Natural or Artificial Opening Endoscopic (ICD-10-PCS; 2018-02-20 07:30)
PROC: 0DH63UZ Insertion of Feeding Device into Stomach, Percutaneous Approach (ICD-10-PCS; 2018-02-20 07:30)
PROC: 30233N1 Transfusion of Nonautologous Red Blood Cells into Peripheral Vein, Percutaneous Approach (ICD-10-PCS; 2018-02-20 07:30)
DX: A41.9 Sepsis, unspecified organism (principal); K25.0 Acute gastric ulcer with hemorrhage; L89.154 Pressure ulcer of sacral region, stage 4; R65.21 Severe sepsis with septic shock; J96.01 Acute respiratory failure with hypoxia; R53.2 Functional quadriplegia; N17.0 Acute kidney failure with tubular necrosis; E43 Unspecified severe protein-calorie malnutrition; J69.0 Pneumonitis due to inhalation of food and vomit; G93.41 Metabolic encephalopathy; N39.0 Urinary tract infection, site not specified; E87.0 Hyperosmolality and hypernatremia; E87.2 Acidosis; D62 Acute posthemorrhagic anemia; B96.20 Unspecified Escherichia coli [E. coli] as the cause of diseases classified elsewhere; B95.2 Enterococcus as the cause of diseases classified elsewhere; E87.6 Hypokalemia; F03.90 Unspecified dementia, unspecified severity, without behavioral disturbance, psychotic disturbance, mood disturbance, and anxiety; I12.9 Hypertensive chronic kidney disease with stage 1 through stage 4 chronic kidney disease, or unspecified chronic kidney disease; K74.69 Other cirrhosis of liver; K75.4 Autoimmune hepatitis; K44.9 Diaphragmatic hernia without obstruction or gangrene; L89.311 Pressure ulcer of right buttock, stage 1; N18.9 Chronic kidney disease, unspecified; N40.1 Benign prostatic hyperplasia with lower urinary tract symptoms; R13.10 Dysphagia, unspecified; R33.8 Other retention of urine; Z68.20 Body mass index [BMI] 20.0-20.9, adult; Z66 Do not resuscitate; Z16.21 Resistance to vancomycin; Z22.322 Carrier or suspected carrier of Methicillin resistant Staphylococcus aureus; Z86.718 Personal history of other venous thrombosis and embolism; Z79.02 Long term (current) use of antithrombotics/antiplatelets
CPT/HCPCS: 36415; 36430; 36600; 71045; 74176; 75989; 76705; 76775; 80048; 80053; 80076; 80202; 81001; 81003; 82103; 82140; 82270; 82550; 82570; 82803; 82962; 83036; 83605; 83690; 83735; 84100; 84155; 84300; 84443; 84484; 84560; 85025; 85610; 85730; 86038; 86255; 86704; 86709; 86803; 86850; 86900; 86901; 86920; 87040; 87081; 87086; 87340; 88305; 88312; 89190; 92526; 92610; 93005; 96361; 96374; 96375; 99291-25